=== PATIENT | female | born 1965 | race Caucasian/White ===

== ENCOUNTER 2019-12-09 11:44 | Outpatient (CLI) | payer OTHER, SELFPAY ==
[2019-12-09 12:22] LABS: Alanine Aminotransferase 15 U/L (14-59); Albumin Level 3.7 g/dL (3.4-5.0); Alkaline Phosphatase 87 U/L (46-116); Aspartate Amino Transferase 12 U/L (15-37); Bilirubin,Total 0.5 mg/dL (0.00-1.00); Blood Urea Nitrogen 13 mg/dL (7-18); CRP 2.4 mg/dL (0.0-0.9); Calcium 8.6 mg/dL (8.5-10.1); Carbon Dioxide 29 mmol/L (21-32); Chloride 101 mmol/L (98-108); Estimated Glomerular Filt Rate > 60; Glucose 147 mg/dL (70-99); Osmolality Calculated 293 mOsm/kg (285-295); Sodium 140 mmol/L (136-145); Total Protein 7.3 g/dL (6.4-8.2)
== END 2019-12-09 11:45 | disposition home or self-care (01) ==
LOC: CHSLAB 11:46
PROVIDERS: PCP Nurse Practitioner Family; Visit Provider Nurse Practitioner Family
DX: R07.89 Other chest pain (principal); R11.2 Nausea with vomiting, unspecified
CPT/HCPCS: 36415; 80053; 82553; 86140

== ENCOUNTER 2020-05-19 07:36 | Outpatient (CLI) | payer OTHER, SELFPAY ==
--- NOTE | ~2020-05-19 | MM_ITS ---
EXAMINATION: MM screening juan j BI w jaja HISTORY: Screening TECHNIQUE: Craniocaudal and mediolateral oblique 3-D tomosynthesis images were obtained and synthetic 2-D images were generated. CAD analysis was submitted and interpreted. COMPARISON: Comparison to multiple prior studies sequentially, with oldest reviewed study dated 03/21. BREAST PARENCHYMAL COMPOSITION: There are scattered areas of fibroglandular density. FINDINGS: There is no evidence of suspicious mass, calcification, or architectural distortion to sugg est malignancy in either breast. There has been no suspicious interval change. IMPRESSION: 1. No mammographic evidence of malignancy. 2. Recommend routine screening mammography in one year. BI-RADS Category 1: Negative Reviewed, dictated and finalized at location A.
[2020-05-19 08:33] LABS: Hemoglobin A1C 7.8 % (<5.7)
== END 2020-05-19 07:37 | disposition home or self-care (01) ==
LOC: CHSIMG 07:39
PROVIDERS: PCP Nurse Practitioner Family; Visit Provider Nurse Practitioner Family
DX: Z12.31 Encounter for screening mammogram for malignant neoplasm of breast (principal); E11.9 Type 2 diabetes mellitus without complications
CPT/HCPCS: 36415; 77063; 77067; 83036

== ENCOUNTER 2020-06-09 15:46 | Outpatient (CLI) | payer OTHER, SELFPAY ==
--- NOTE | ~2020-06-09 | XR_ITS ---
XR foot RT standing 2V DATE: 06/09/2020 16:07 INDICATION: Right foot pain TECHNIQUE: Weightbearing AP and lateral views COMPARISON: None FINDINGS: There is very prominent plantar and particularly posterior calcaneal enthesopathy. No fracture or dislocation, periosteal reaction or bone destruction. Mild osteoarthritis at the first metatarsophalangeal joint. IMPRESSION: Prominent plantar and posterior calcaneal enthesopathy Mild osteoarthritis at first metatarsophalangeal joint Reviewed, dictated and finalized at location A.
== END 2020-06-09 15:47 | disposition home or self-care (01) ==
LOC: CHSIMG 15:48
PROVIDERS: PCP Nurse Practitioner Family; Visit Provider Nurse Practitioner Family
DX: M79.671 Pain in right foot (principal)
CPT/HCPCS: 73620

== ENCOUNTER 2020-08-25 07:19 | Outpatient (CLI) | payer OTHER, SELFPAY ==
[2020-08-25 07:51] LABS: Creatinine Urine 65.61 mg/dL (40-278); MALB Creatinine Ratio 19.8 mg/g (0-30); Microalbumin Urine Random < 13.0 mg/L
[2020-08-25 07:53] LABS: Hemoglobin A1C 7.7 % (<5.7)
[2020-08-25 09:06] LABS: Alanine Aminotransferase 17 U/L (14-59); Albumin Level 3.7 g/dL (3.4-5.0); Alkaline Phosphatase 82 U/L (46-116); Anion Gap 7 mmol/L (8-16); Aspartate Amino Transferase < 10 U/L (15-37); Bilirubin,Total 0.5 mg/dL (0.00-1.00); Blood Urea Nitrogen 12 mg/dL (7-18); Carbon Dioxide 29 mmol/L (21-32); Chloride 106 mmol/L (98-108); Cholesterol 175 mg/dL (0-200); Estimated Glomerular Filt Rate > 60; Glucose 155 mg/dL (70-99); HDL Direct 45 mg/dL (40-60); LDL Cholesterol Calculated 101 mg/dL (<130); Osmolality Calculated 296 mOsm/kg (285-295); Potassium 4.6 mmol/L (3.5-5.1); Sodium 142 mmol/L (136-145); Total Protein 6.5 g/dL (6.4-8.2); Triglycerides 146 mg/dL (0-150)
[2020-08-25 09:10] LABS: Calcium 8.7 mg/dL (8.5-10.1)
== END 2020-08-25 07:20 | disposition home or self-care (01) ==
LOC: CHSLAB 07:21
PROVIDERS: PCP Nurse Practitioner Family; Visit Provider Nurse Practitioner Family
DX: E11.9 Type 2 diabetes mellitus without complications (principal)
CPT/HCPCS: 36415; 80053; 80061; 82043; 83036

== ENCOUNTER 2020-12-08 06:56 | Outpatient (CLI) | payer OTHER, SELFPAY ==
[2020-12-08 07:38] LABS: Hemoglobin A1C 6.8 % (<5.7)
[2020-12-08 08:14] LABS: Albumin Level 3.7 g/dL (3.4-5.0); Alkaline Phosphatase 82 U/L (46-116); Anion Gap 8 mmol/L (8-16); Aspartate Amino Transferase 11 U/L (15-37); Bilirubin,Total 0.7 mg/dL (0.00-1.00); Blood Urea Nitrogen 10 mg/dL (7-18); Calcium 8.7 mg/dL (8.5-10.1); Carbon Dioxide 29 mmol/L (21-32); Chloride 105 mmol/L (98-108); Estimated Glomerular Filt Rate > 60; Glucose 151 mg/dL (70-99); Osmolality Calculated 296 mOsm/kg (285-295); Potassium 4.5 mmol/L (3.5-5.1); Sodium 142 mmol/L (136-145); Total Protein 6.4 g/dL (6.4-8.2)
[2020-12-08 08:26] LABS: Alanine Aminotransferase 19 U/L (14-59)
== END 2020-12-08 06:57 | disposition home or self-care (01) ==
LOC: CHSLAB 06:58
PROVIDERS: PCP Nurse Practitioner Family; Visit Provider Nurse Practitioner Family
DX: E11.9 Type 2 diabetes mellitus without complications (principal)
CPT/HCPCS: 36415; 80053; 83036

== ENCOUNTER 2021-03-25 07:17 | Outpatient (CLI) | payer OTHER, SELFPAY ==
[2021-03-25 07:38] LABS: Hemoglobin A1C 7.1 % (<5.7)
== END 2021-03-25 07:18 | disposition home or self-care (01) ==
LOC: CHSLAB 07:19
PROVIDERS: PCP Nurse Practitioner Family; Visit Provider Nurse Practitioner Family
DX: E11.9 Type 2 diabetes mellitus without complications (principal)
CPT/HCPCS: 36415; 83036

== ENCOUNTER 2021-05-25 12:14 | Outpatient (CLI) | payer OTHER, SELFPAY ==
--- NOTE | ~2021-05-25 | MM_ITS ---
EXAMINATION: MM screening juan j BI w jaja HISTORY: Screening mammogram, family history of breast cancer in her mother. TECHNIQUE: Craniocaudal and mediolateral oblique 3-D tomosynthesis images were obtained and synthetic 2-D images were generated. CAD analysis was submitted and interpreted. COMPARISON: 05/19/2020, 05/26/2019, 05/15/2018 BREAST PARENCHYMAL COMPOSITION: The breasts are almost entirely fatty. FINDINGS: There is no evidence of suspicious mass, calcification, or architectural distortion to sugg est malignancy in either breast. There has been no suspicious interval change. IMPRESSION: 1. No mammographic evidence of malignancy. 2. Recommend routine screening mammography in one year. BI-RADS Category 1: Negative Reviewed, dictated and finalized at location A.
== END 2021-05-25 12:15 | disposition home or self-care (01) ==
LOC: CHSIMG 12:15
PROVIDERS: PCP Nurse Practitioner Family; Visit Provider Nurse Practitioner Family
DX: Z12.31 Encounter for screening mammogram for malignant neoplasm of breast (principal)
CPT/HCPCS: 77063; 77067

== ENCOUNTER 2021-07-06 07:30 | Outpatient (CLI) | payer OTHER, SELFPAY ==
[2021-07-06 07:52] LABS: Hemoglobin A1C 6.8 % (<5.7)
== END 2021-07-06 07:31 | disposition home or self-care (01) ==
LOC: CHSLAB 07:32
PROVIDERS: PCP Nurse Practitioner Family; Visit Provider Nurse Practitioner Family
DX: E11.9 Type 2 diabetes mellitus without complications (principal)
CPT/HCPCS: 36415; 83036

== ENCOUNTER 2021-08-11 12:27 | Outpatient (CLI) | payer OTHER, SELFPAY ==
--- NOTE | ~2021-08-11 | XR_ITS ---
EXAMINATION: XR chest 2V DATE: 08/11/2021 12:46 INDICATION: Shortness of breath TECHNIQUE: PA and lateral views of the chest are obtained. COMPARISON: 10/31/2019 FINDINGS: The lungs are free of acute opacities. There is no pleural effusion or pneumothorax. The ca rdiomediastinal silhouette is normal. There is moderate thoracic spondylosis. IMPRESSION: 1. No acute cardiopulmonary abnormality. Reviewed, dictated and finalized at location B.
== END 2021-08-11 12:28 | disposition home or self-care (01) ==
LOC: CHSIMG 12:29
PROVIDERS: PCP Nurse Practitioner Family; Visit Provider Nurse Practitioner Family
DX: J45.901 Unspecified asthma with (acute) exacerbation (principal)
CPT/HCPCS: 71046

== ENCOUNTER 2022-02-26 10:31 | Emergency (ER) | payer OTHER, SELFPAY ==
[2022-02-26 10:35] VITALS: BP 164/99; PULSE 97; RESP 16; TEMP 36.6; O2SAT 98
--- NOTE | 2022-02-26 10:40 | ED.LOWEXIN ---
HPI - Extremity Injury (Lower) General Chief Complaint: Extremity Injury, Lower Stated Complaint: R leg pain for 1 wk, redness/tenderness on R calf Time Seen by Provider: 02/26/22 10:41 Source: patient History of Present Illness HPI Narrative: 56-year-old female, smoker with a history of hypertension, diabetes mellitus presents to the ER with a one-week history -- pain in the right leg with red/brown discoloration of the lower leg. no history of trauma -- muscle cramps the cough without any swelling. 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 Relieving factors: nothing Exacerbating factors: nothing Other symptoms: none Related Data Allergies Allergy/AdvReac Type Severity Reaction Status Date / Time ceftriaxone [From Rocephin] Allergy Intermediate Hives Verified 02/26/22 10:48 cephalexin Allergy Intermediate swelling, Verified 02/26/22 10:48 hives Penicillins Allergy Intermediate Unknown Verified 02/26/22 10:48 sulfamethoxazole Allergy Mild Hives Verified 02/26/22 10:48 [From Bactrim] trimethoprim [From Bactrim] Allergy Mild Hives Verified 02/26/22 10:48 Review of Systems Review of Systems: All systems reviewed & are unremarkable except as noted in HPI and below Constitutional: Constitutional: Reports as per HPI and Reports no additional constitutional complaints Eyes: Eyes: Reports as per HPI and Reports no additional eye complaints ENT: Reports system reviewed and no additional complaints, except as documented and Reports as per HPI Cardiovascular: Cardiovascular: Reports as per HPI and Reports no additional cardiovascular complaints Respiratory: Respiratory: Reports as per HPI, Reports no additional respiratory complaints and Reports cough Gastrointestinal: Gastrointestinal: Reports as per HPI and Reports no additional gastrointestinal complaints Genitourinary: Genitourinary: Reports no additional female genitourinary complaints Musculoskeletal: Musculoskeletal: Reports no additional musculoskeletal complaints Comments: right calf pain /cramps Integumentary/Breasts: Skin/Breast: Reports system reviewed and no additional complaints, except as docu Comments: red discoloration of lower leg smoke prominent on the right side Neurologic: Reports system reviewed and no additional complaints, except as documented and Reports as per HPI Psychiatric: Psychiatric: Reports no additional psychiatric complaints and Reports as per HPI Endocrine: Endocrine: Reports no additional endocrine complaints and Reports as per HPI Hematologic/Lymphatic: Hematologic/Lymphatic: Reports no additional hematologic/lymphatic complaints and Reports as per HPI Allergic/Immunologic: Allergic/Immunologic: Reports no additional allergic/immunologic complaints and Reports as per HPI [facility] Past Medical History Medical History Abdominal pain Acute otitis media Chest discomfort Conjunctivitis HTN (hypertension) Hyperlipidemia Nausea & vomiting Nicotine dependence, cigarettes, uncomplicated Osteoporosis Type 2 diabetes mellitus Family History Family History Father Diabetes mellitus Family history of arthritis Family history of malignant neoplasm Father Family history of type 2 diabetes mellitus Family history of chronic obstructive pulmonary disease Social History Social History Smoking status: Former smoker Smoking end date: 10/09/12 Alcohol intake: never Substance use: never Substance use type: does not use Exam Const: General: no acute distress and alert Orientation/consciousness: patient oriented x3 HENMT: Head: normal to inspection Eyes: Conjunctivae: conjunctivae normal Pupils: Equal, round and reactive pupils present Neck: Neck: normal visual inspection and no lymphadenopathy Chest: Chest palpation &
[2022-02-26 11:11] LABS: Basophils Absolute Auto 0.06 K/mm3 (0.00-0.10); Basophils Percent Auto 0.5 % (0.0-1.0); Eosinophils Absolute Auto 0.28 K/mm3 (0.02-0.50); Eosinophils Percent Auto 2.4 % (1.0-6.0); Hematocrit 46.8 % (35.0-49.0); Hemoglobin 14.8 g/dL (12.0-15.0); Immature Granulocyte Absolute 0.03 K/mm3 (0.00-0.00); Immature Granulocyte Percent A 0.3 % (0.0-0.0); Lymphocytes Absolute Auto 5.98 K/mm3 (1.10-4.50); Lymphocytes Percent Auto 50.3 % (18.0-42.0); Mean Corpuscular HGB Conc 31.6 g/dL (32.0-36.0); Mean Corpuscular Hemoglobin 29.5 pg (27.0-31.0); Mean Corpuscular Volume 93.2 fL (78.0-102.0); Mean Platelet Volume 10.1 fl (9.2-11.8); Monocytes Absolute Auto 0.78 K/mm3 (0.10-0.90); Monocytes Percent Auto 6.6 % (2.0-11.0); Neutrophils Absolute Auto 4.8 K/mm3 (1.7-7.2); Neutrophils Percent Auto 39.9 % (50.0-70.0); Platelet Count Result 234 K/mm3 (150-420); Red Blood Count 5.02 M/mm3 (4.20-5.40); Red Cell Distribution Width 15.6 % (11.6-14.4); White Blood Count 11.9 K/mm3 (4.8-10.8)
[2022-02-26 11:20] LABS: D Dimer 0.22 mg/L (0.19-0.50)
[2022-02-26 11:30] LABS: Alanine Aminotransferase 16 U/L (14-59); Albumin Level 3.4 g/dL (3.4-5.0); Alkaline Phosphatase 75 U/L (46-116); Anion Gap 9 mmol/L (8-16); Aspartate Amino Transferase 11 U/L (15-37); Bilirubin,Total 0.4 mg/dL (0.00-1.00); Blood Urea Nitrogen 14 mg/dL (7-18); Calcium 8.6 mg/dL (8.5-10.1); Carbon Dioxide 25 mmol/L (21-32); Chloride 105 mmol/L (98-108); Estimated CRCL calculation 83 ml/min; Estimated Glomerular Filt Rate > 60; Glucose 206 mg/dL (70-99); NT Pro B Type Natriuretic Pept 94 pg/mL (0-125); Osmolality Calculated 294 mOsm/kg (285-295); Potassium 4.1 mmol/L (3.5-5.1); Sodium 139 mmol/L (136-145); Total Protein 6.5 g/dL (6.4-8.2)
[2022-02-26 11:31] LABS: Troponin I 5.3 ng/L (0.00-60.4)
[2022-02-26 11:53] VITALS: BP 152/87; PULSE 79; RESP 18; TEMP 36.7; O2SAT 97
[2022-02-28 16:40] LABS: Hemoglobin A1C 6.9 % (<5.7)
== END 2022-02-26 11:54 | disposition home or self-care (01) ==
PROVIDERS: Emergency Provider Internal Medicine Critical Care Medicine; PCP Nurse Practitioner Family
DX: I87.8 Other specified disorders of veins (principal); I10 Essential (primary) hypertension; E11.9 Type 2 diabetes mellitus without complications; E78.5 Hyperlipidemia, unspecified; M81.0 Age-related osteoporosis without current pathological fracture; Z87.891 Personal history of nicotine dependence
CPT/HCPCS: 36415; 80053; 83036; 83880; 84484; 85025; 85380; 99284

== ENCOUNTER 2022-03-09 12:20 | Outpatient (CLI) | payer OTHER, SELFPAY ==
--- NOTE | ~2022-03-09 | US_ITS ---
EXAMINATION: US arterial ankle brachial ind DATE: 03/09/2022 13:58 INDICATION: Right lower limb pain and swelling. Other specified symptoms and signs involving the circ ulatory system. Peripheral vascular disease risk factors of diabetes, hypertension and smoking. TECHNIQUE: Segmental pressures and plethysmographic and Doppler waveforms of the brachial and lower e xtremity arteries were obtained. COMPARISON: None. FINDINGS: Right and left brachial artery pressures of 123 mm Hg and 136 mm Hg, respectively, are concordant (no rmal difference <= 30 mmHg). The right ankle-brachial index (JULIANNA) is 1.03 (normal >= 0.9-1.0). The right great toe-brachial index (TBI) is 1.01 (normal >= 0.65). Arterial Doppler waveforms are triphasic with brisk systolic upstroke s at both right posterior tibial and dorsalis pedis arteries. The left JULIANNA is 1.02. The left TBI is 0.92. Arterial Doppler waveforms are triphasic with brisk systo lic upstrokes at both left posterior tibial and dorsalis pedis arteries. IMPRESSION: 1. No significant arterial occlusive disease to the bilateral lower limbs with normal bilateral ABIs and TBIs. Reviewed, dictated and finalized at location B.
--- NOTE | ~2022-03-09 | US_ITS ---
EXAMINATION: US arterial duplex LE RT DATE: 03/09/2022 13:57 INDICATION: Right lower limb pain and swelling. Other specified symptoms and signs involving the circ ulatory system. TECHNIQUE: Multiple grayscale and Doppler ultrasound images of the arteries of the right lower limb w ere obtained. COMPARISON: None FINDINGS: Triphasic waveforms in the right common femoral, profunda femoral, superficial femoral, popliteal, po sterior tibial arteries and biphasic waveforms in the right dorsalis pedis artery. Each of these deepak raoul demonstrates a brisk systolic upstroke and relatively smooth laminar flow with minimal spectral broadening. No vascular flow identified in the proximal right peroneal artery suggesting possible occ lusion with subtle biphasic waveform evident at the distal right peroneal artery potentially related to small amount of collateral flow. IMPRESSION: 1. No evident flow within the proximal right peroneal artery with small amount of flow with biphasic waveform in the distal peroneal artery suggesting possible proximal occlusion with distal reconstitut ion via collaterals. 2. Remaining arteries of the right lower limb appear unremarkable with brisk systolic upstrokes and r elatively smooth laminar flow. Reviewed, dictated and finalized at location B. IMPRESSION: 1. No evident flow within the proximal right peroneal artery with small amount of flow with biphasic waveform in the distal peroneal artery suggesting possibl e proximal occlusion with distal reconstitution via collaterals. 2. Remaining arteries of the right lower limb appear unremarkable with brisk sy stolic upstrokes and relatively smooth laminar flow.
--- NOTE | ~2022-03-09 | US_ITS ---
EXAMINATION:US venous doppler LE RT INDICATION:Right lower extremity pain and swelling TECHNIQUE: Multiple grayscale, color flow and Doppler images of the right lower extremity deep venous systems were obtained and reviewed. COMPARISON:No prior studies for comparison. FINDINGS: The common femoral, superficial femoral and popliteal veins demonstrate normal respiratory variation, augmentation and compressibility. Color flow is also seen within the posterior tibial, pe roneal, greater saphenous and profunda veins. IMPRESSION: 1: No lower extremity deep venous thrombosis. Reviewed, dictated and finalized at location A.
== END 2022-03-09 12:21 | disposition home or self-care (01) ==
LOC: CHSIMG 12:21
PROVIDERS: PCP Nurse Practitioner Family; Visit Provider Nurse Practitioner Family
DX: R09.89 Other specified symptoms and signs involving the circulatory and respiratory systems (principal)
CPT/HCPCS: 93922; 93926; 93971

== ENCOUNTER 2022-06-02 11:47 | Outpatient (CLI) | payer OTHER, SELFPAY ==
--- NOTE | ~2022-06-02 | MM_ITS ---
EXAMINATION: MM screening juan j BI w jaja HISTORY: Screening TECHNIQUE: Craniocaudal and mediolateral oblique 3-D tomosynthesis images were obtained and synthetic 2-D images were generated. CAD analysis was submitted and interpreted. COMPARISON: Comparison to multiple prior studies sequentially, with oldest reviewed study dated 05/05. BREAST PARENCHYMAL COMPOSITION: Breast composed of scattered areas of fibroglandular density FINDINGS: Stable benign-appearing masses outer aspect of the left breast. There is no evidence of ian picious mass, calcification, or architectural distortion to suggest malignancy in either breast. Ther e has been no suspicious interval change. IMPRESSION: 1. No mammographic evidence of malignancy. 2. Recommend routine screening mammography in one year. BI-RADS Category 1: Negative Reviewed, dictated and finalized at location A.
== END 2022-06-02 11:48 | disposition home or self-care (01) ==
LOC: CHSIMG 11:49
PROVIDERS: PCP Nurse Practitioner Family; Visit Provider Nurse Practitioner Family
DX: Z12.31 Encounter for screening mammogram for malignant neoplasm of breast (principal)
CPT/HCPCS: 77063; 77067

== ENCOUNTER 2022-08-23 07:11 | Outpatient (CLI) | payer OTHER, SELFPAY ==
[2022-08-23 07:35] LABS: Basophils Absolute Auto 0.04 K/mm3 (0.00-0.10); Basophils Percent Auto 0.3 % (0.0-1.0); Eosinophils Absolute Auto 0.25 K/mm3 (0.02-0.50); Eosinophils Percent Auto 2.1 % (1.0-6.0); Hematocrit 48.5 % (35.0-49.0); Hemoglobin 15.6 g/dL (12.0-15.0); Immature Granulocyte Absolute 0.04 K/mm3 (0.00-0.00); Immature Granulocyte Percent A 0.3 % (0.0-0.0); Lymphocytes Absolute Auto 6.53 K/mm3 (1.10-4.50); Lymphocytes Percent Auto 55.1 % (18.0-42.0); Mean Corpuscular HGB Conc 32.2 g/dL (32.0-36.0); Mean Corpuscular Hemoglobin 30.3 pg (27.0-31.0); Mean Corpuscular Volume 94.2 fL (78.0-102.0); Monocytes Absolute Auto 0.59 K/mm3 (0.10-0.90); Neutrophils Absolute Auto 4.4 K/mm3 (1.7-7.2); Neutrophils Percent Auto 37.2 % (50.0-70.0); Platelet Count Result 224 K/mm3 (150-420); Red Blood Count 5.15 M/mm3 (4.20-5.40); Red Cell Distribution Width 14.6 % (11.6-14.4); White Blood Count 11.9 K/mm3 (4.8-10.8)
[2022-08-23 07:50] LABS: Creatinine Urine 27.44 mg/dL (40-278); MALB Creatinine Ratio 47.3 mg/g (0-30); Microalbumin Urine Random < 13.0 mg/L
[2022-08-23 07:53] LABS: Hemoglobin A1C 7.6 % (<5.7)
[2022-08-23 07:59] LABS: Alanine Aminotransferase 18 U/L (14-59); Albumin Level 3.6 g/dL (3.4-5.0); Alkaline Phosphatase 83 U/L (46-116); Anion Gap 8 mmol/L (8-16); Aspartate Amino Transferase 12 U/L (15-37); Bilirubin,Total 0.5 mg/dL (0.00-1.00); Blood Urea Nitrogen 13 mg/dL (7-18); Calcium 8.5 mg/dL (8.5-10.1); Carbon Dioxide 29 mmol/L (21-32); Chloride 105 mmol/L (98-108); Cholesterol 183 mg/dL (0-200); Estimated Glomerular Filt Rate > 60; Glucose 152 mg/dL (70-99); HDL Direct 46 mg/dL (40-60); LDL Cholesterol Calculated 99 mg/dL (<130); Osmolality Calculated 297 mOsm/kg (285-295); Potassium 4.5 mmol/L (3.5-5.1); Sodium 142 mmol/L (136-145); Total Protein 6.6 g/dL (6.4-8.2); Triglycerides 192 mg/dL (0-150)
== END 2022-08-23 07:12 | disposition home or self-care (01) ==
LOC: CHSLAB 07:13
PROVIDERS: PCP Nurse Practitioner Family; Visit Provider Nurse Practitioner Family
DX: E78.5 Hyperlipidemia, unspecified (principal); E11.9 Type 2 diabetes mellitus without complications; I10 Essential (primary) hypertension
CPT/HCPCS: 36415; 80053; 80061; 82043; 83036; 85025

== ENCOUNTER 2022-12-06 07:00 | Outpatient (CLI) | payer OTHER, SELFPAY | END 2022-12-06 07:01 | disposition home or self-care (01) | LOC: CHSLAB 07:02 | PROVIDERS: PCP Nurse Practitioner Family; Visit Provider Nurse Practitioner Family | DX: E11.9 Type 2 diabetes mellitus without complications (principal) | CPT/HCPCS: 36415; 83036 ==

== ENCOUNTER 2023-06-06 12:09 | Outpatient (CLI) | payer OTHER, SELFPAY ==
--- NOTE | ~2023-06-06 | MM_ITS ---
EXAMINATION: MM screening juan j BI w jaja HISTORY: Screening mammogram, family history of breast cancer in her mother. TECHNIQUE: Craniocaudal and mediolateral oblique 3-D tomosynthesis images were obtained and synthetic 2-D images were generated. CAD analysis was submitted and interpreted. COMPARISON: 06/02/2022, 05/25/2021 BREAST PARENCHYMAL COMPOSITION: There are scattered areas of fibroglandular density. FINDINGS: No suspicious mass, calcification, or architectural distortion are identified in either pamela ast to suggest malignancy. There has been no suspicious interval change. IMPRESSION: 1. No mammographic evidence of malignancy. 2. Recommend routine screening mammography in one year. BI-RADS Category 1: Negative Reviewed, dictated and finalized at location A.
== END 2023-06-06 12:10 | disposition home or self-care (01) ==
LOC: CHSIMG 12:10
PROVIDERS: PCP Nurse Practitioner Family; Visit Provider Nurse Practitioner Family
DX: Z12.31 Encounter for screening mammogram for malignant neoplasm of breast (principal)
CPT/HCPCS: 77063; 77067

== ENCOUNTER 2023-06-13 07:06 | Outpatient (CLI) | payer OTHER, SELFPAY ==
[2023-06-13 07:31] LABS: Basophils Absolute Auto 0.06 K/mm3 (0.00-0.10); Basophils Percent Auto 0.4 % (0.0-1.0); Eosinophils Absolute Auto 0.29 K/mm3 (0.02-0.50); Hematocrit 49.6 % (35.0-49.0); Hemoglobin 15.6 g/dL (12.0-15.0); Immature Granulocyte Absolute 0.04 K/mm3 (0.00-0.00); Immature Granulocyte Percent A 0.3 % (0.0-0.0); Lymphocytes Absolute Auto 8.24 K/mm3 (1.10-4.50); Lymphocytes Percent Auto 57.9 % (18.0-42.0); Mean Corpuscular HGB Conc 31.5 g/dL (32.0-36.0); Mean Corpuscular Hemoglobin 29.2 pg (27.0-31.0); Mean Corpuscular Volume 92.7 fL (78.0-102.0); Mean Platelet Volume 9.9 fl (9.2-11.8); Monocytes Percent Auto 5.6 % (2.0-11.0); Neutrophils Absolute Auto 4.8 K/mm3 (1.7-7.2); Neutrophils Percent Auto 33.8 % (50.0-70.0); Platelet Count Result 254 K/mm3 (150-420); Red Blood Count 5.35 M/mm3 (4.20-5.40); Red Cell Distribution Width 15.8 % (11.6-14.4); White Blood Count 14.2 K/mm3 (4.8-10.8)
[2023-06-13 07:39] LABS: Hemoglobin A1C 6.3 % (<5.7)
[2023-06-13 08:06] LABS: Alanine Aminotransferase 12 U/L (14-59); Albumin Level 3.5 g/dL (3.4-5.0); Alkaline Phosphatase 76 U/L (46-116); Anion Gap 6 mmol/L (8-16); Aspartate Amino Transferase 10 U/L (15-37); Bilirubin,Total 0.5 mg/dL (0.00-1.00); Blood Urea Nitrogen 20 mg/dL (7-18); Calcium 8.7 mg/dL (8.5-10.1); Carbon Dioxide 30 mmol/L (21-32); Chloride 105 mmol/L (98-108); Cholesterol 183 mg/dL (0-200); Estimated Glomerular Filt Rate > 60; Glucose 127 mg/dL (70-99); HDL Direct 44 mg/dL (40-60); LDL Cholesterol Calculated 102 mg/dL (<130); Osmolality Calculated 296 mOsm/kg (285-295); Potassium 4.4 mmol/L (3.5-5.1); Sodium 141 mmol/L (136-145); Total Protein 6.4 g/dL (6.4-8.2); Triglycerides 184 mg/dL (0-150)
== END 2023-06-13 07:07 | disposition home or self-care (01) ==
LOC: CHSLAB 07:07
PROVIDERS: PCP Nurse Practitioner Family; Visit Provider Nurse Practitioner Family
DX: E78.5 Hyperlipidemia, unspecified (principal); E11.9 Type 2 diabetes mellitus without complications; I10 Essential (primary) hypertension
CPT/HCPCS: 36415; 80053; 80061; 83036; 85025

== ENCOUNTER 2023-06-27 12:55 | Outpatient (CLI) | payer OTHER, SELFPAY ==
[2023-06-27 13:12] LABS: Hematocrit 49.7 % (35.0-49.0); Hemoglobin 15.6 g/dL (12.0-15.0); Mean Corpuscular HGB Conc 31.4 g/dL (32.0-36.0); Mean Corpuscular Hemoglobin 29.2 pg (27.0-31.0); Mean Corpuscular Volume 93.1 fL (78.0-102.0); Mean Platelet Volume 10.2 fl (9.2-11.8); Platelet Count Result 237 K/mm3 (150-420); Red Blood Count 5.34 M/mm3 (4.20-5.40); Red Cell Distribution Width 15.7 % (11.6-14.4); White Blood Count 12.8 K/mm3 (4.8-10.8)
[2023-06-27 13:45] LABS: Band Neutrophils Percent 0 % (0-6); Basophils Percent Manual 0 % (0-1); Eosinophils Absolute Manual 0.38 K/mm3 (0.02-0.5); Eosinophils Percent Manual 3 % (1-6); Lymphocytes Absolute Manual 8.44 K/mm3 (1.1-4.5); Lymphocytes Percent Manual 66 % (18-44); Monocytes Absolute Manual 0.51 K/mm3 (0.1-0.90); Monocytes Percent Manual 4 % (3-9); Neutrophils Absolute Manual 3.45 K/mm3 (1.7-7.2); Neutrophils Percent Manual 27 % (46-73); Total Cells Counted 100
[2023-06-27 13:46] LABS: Platelet Estimate Adequate (Adequate)
== END 2023-06-27 12:56 | disposition home or self-care (01) ==
LOC: CHSLAB 12:56
PROVIDERS: PCP Nurse Practitioner Family; Visit Provider Nurse Practitioner Family
DX: D72.829 Elevated white blood cell count, unspecified (principal)
CPT/HCPCS: 36415; 85025

== ENCOUNTER 2023-12-26 07:15 | Outpatient (CLI) | payer OTHER, SELFPAY ==
[2023-12-26 07:30] LABS: Hematocrit 50.1 % (35.0-49.0); Hemoglobin 15.6 g/dL (12.0-15.0); Mean Corpuscular HGB Conc 31.1 g/dL (32-36); Mean Corpuscular Hemoglobin 28.6 pg (27.0-31.0); Mean Corpuscular Volume 91.8 fL (78.0-102.0); Mean Platelet Volume 9.8 fl (9.2-11.8); Platelet Count Result 256 K/mm3 (150-420); Red Blood Count 5.46 M/mm3 (4.20-5.40); White Blood Count 14.9 K/mm3 (4.8-10.8)
[2023-12-26 07:43] LABS: Band Neutrophils Percent 0 % (0-6); Eosinophils Absolute Manual 0.44 K/mm3 (0.02-0.50); Eosinophils Percent Manual 3 % (1-6); Lymphocytes Absolute Manual 9.23 K/mm3 (1.1-4.5); Lymphocytes Percent Manual 62 % (18-44); Monocytes Absolute Manual 0.89 K/mm3 (0.1-0.90); Monocytes Percent Manual 6 % (3-9); Neutrophils Absolute Manual 4.32 K/mm3 (1.7-7.2); Neutrophils Percent Manual 29 % (46-73); Platelet Estimate Adequate (Adequate); Total Cells Counted 100
[2023-12-26 08:11] LABS: Alanine Aminotransferase 16 U/L (14-59); Albumin Level 3.6 g/dL (3.4-5.0); Alkaline Phosphatase 78 U/L (46-116); Anion Gap 12 mmol/L (8-16); Aspartate Amino Transferase 11 U/L (15-37); Bilirubin,Total 0.4 mg/dL (0.00-1.00); Blood Urea Nitrogen 15 mg/dL (7-18); Calcium 8.8 mg/dL (8.5-10.1); Carbon Dioxide 26 mmol/L (21-32); Chloride 104 mmol/L (98-108); Cholesterol 200 mg/dL (0-200); Estimated Glomerular Filt Rate > 60; Glucose 137 mg/dL (70-99); HDL Direct 47 mg/dL (40-60); LDL Cholesterol Calculated 87 mg/dL (<130); Osmolality Calculated 296 mOsm/kg (285-295); Potassium 4.3 mmol/L (3.5-5.1); Sodium 142 mmol/L (136-145); Triglycerides 332 mg/dL (0-150)
== END 2023-12-26 07:16 | disposition home or self-care (01) ==
LOC: CHSLAB 07:17
PROVIDERS: PCP Nurse Practitioner Family; Visit Provider Nurse Practitioner Family
DX: Z00.00 Encounter for general adult medical examination without abnormal findings (principal)
CPT/HCPCS: 36415; 80053; 80061; 83036; 85025

== ENCOUNTER 2024-01-30 10:17 | Outpatient (CLI) | payer OTHER, SELFPAY ==
[2024-01-30 10:42] LABS: Hematocrit 48.4 % (37.0-47.0); Hemoglobin 15.2 g/dL (12.0-15.0); Mean Corpuscular HGB Conc 31.4 g/dl (32-36); Mean Corpuscular Hemoglobin 29.4 pg (26-34); Mean Corpuscular Volume 93.6 fl (80-100); Mean Platelet Volume 9.3 fl (7.4-10.4); Platelet Count Result 354 k/mm3 (150-375); Red Blood Count 5.17 M/mm3 (4.2-5.4); Red Cell Distribution Width 14.9 % (11.5-14.5); White Blood Count 16.9 K/mm3 (4.5-10.0)
[2024-01-30 11:05] LABS: Atypical Lymphocytes Present; Band Neutrophils Percent 2 % (0-6); Eosinophils Absolute Manual 0.16 K/mm3 (0.02-0.50); Eosinophils Percent Manual 1 % (0-4); Lymphocytes Absolute Manual 8.78 K/mm3 (1.1-4.5); Monocytes Absolute Manual 0.84 K/mm3 (0.1-0.90); Monocytes Percent Manual 5 % (3-9); Neutrophils Absolute Manual 7.09 K/mm3 (1.7-7.2); Neutrophils Percent Manual 40 % (46-73); Platelet Estimate Adequate (Adequate); Schistocytes None Seen; Total Cells Counted 100
[2024-01-30 12:42] LABS: Erythrocyte Sedimentation Rate 18 mm/hr (0-20)
[2024-01-30 16:54] LABS: Iron 77 ug/dL (37-170)
[2024-01-30 17:02] LABS: Alanine Aminotransferase 13 U/L (6-35); Albumin Level 4.5 g/dL (3.5-5.1); Alkaline Phosphatase 79 U/L (38-126); Anion Gap 9 mmol/L (4-12); Aspartate Amino Transferase 24 U/L (14-36); Bilirubin,Total 0.5 mg/dL (0.2-1.3); Blood Urea Nitrogen 15 mg/dL (7-17); CRP 1.3 mg/dL (<1.0); Calcium 9.5 mg/dL (8.4-10.2); Carbon Dioxide 26 mmol/L (22-30); Chloride 107 mmol/L (98-107); Estimated Glomerular Filt Rate > 60; Glucose 153 mg/dL (65-110); Potassium 4.2 mmol/L (3.4-5.0); Sodium 142 mmol/L (137-145)
[2024-01-30 17:05] LABS: Percent Iron Saturation 20 % (20-50)
[2024-01-30 18:14] LABS: Folic Acid 6.8 ng/mL (2.76->20); Vitamin B12 > 1000.0 pg/mL (239-931)
== END 2024-01-30 10:18 | disposition home or self-care (01) ==
LOC: ANHLAB 10:19
PROVIDERS: Nurse Practitioner Family; PCP Nurse Practitioner Family; Visit Provider Internal Medicine Hematology & Oncology
DX: D72.829 Elevated white blood cell count, unspecified (principal); D50.9 Iron deficiency anemia, unspecified
CPT/HCPCS: 36415; 80053; 82607; 82746; 83540; 83550; 85025; 85652; 86140

== ENCOUNTER 2024-02-01 11:04 | Outpatient (CLI) | payer OTHER, SELFPAY ==
[2024-02-01 12:42] LABS: CRP 0.5 mg/dL (0.0-0.9); Erythrocyte Sedimentation Rate 15 mm/hr (0-20); Folic Acid 6.4 ng/mL (8.6->20); Vitamin B12 1848 pg/mL (193-986)
[2024-02-07 11:04] LABS: Reference Lab Test Name FLOW CYTOMETRY
== END 2024-02-01 11:05 | disposition home or self-care (01) ==
LOC: CHSLAB 11:07
PROVIDERS: PCP Nurse Practitioner Family; Visit Provider Nurse Practitioner Family
DX: D72.829 Elevated white blood cell count, unspecified (principal); D50.9 Iron deficiency anemia, unspecified
CPT/HCPCS: 36415; 82607; 82746; 85652; 86140; 88184; 88185

== ENCOUNTER 2024-04-02 06:59 | Outpatient (CLI) | payer OTHER, SELFPAY ==
[2024-04-02 07:25] LABS: Hemoglobin A1C 6.5 % (<5.7)
[2024-04-02 07:37] LABS: Creatinine Urine 32.08 mg/dL (40-278)
[2024-04-02 07:57] LABS: Microalbumin Urine Random < 1.3 mg/L
[2024-04-02 08:04] LABS: Alanine Aminotransferase 6 U/L (14-59); Albumin Level 3.4 g/dL (3.4-5.0); Alkaline Phosphatase 66 U/L (46-116); Anion Gap 10 mmol/L (4-12); Aspartate Amino Transferase 13 U/L (15-37); Bilirubin,Total 0.3 mg/dL (0.00-1.00); Blood Urea Nitrogen 17 mg/dL (7-18); Calcium 8.7 mg/dL (8.5-10.1); Carbon Dioxide 28 mmol/L (21-32); Chloride 103 mmol/L (98-108); Estimated Glomerular Filt Rate > 60; Glucose 115 mg/dL (70-99); Osmolality Calculated 294 mOsm/kg (285-295); Potassium 4.1 mmol/L (3.5-5.1); Sodium 141 mmol/L (136-145); Total Protein 6.2 g/dL (6.4-8.2)
== END 2024-04-02 07:00 | disposition home or self-care (01) ==
LOC: CHSLAB 07:01
PROVIDERS: PCP Nurse Practitioner Family; Visit Provider Nurse Practitioner Family
DX: E11.9 Type 2 diabetes mellitus without complications (principal)
CPT/HCPCS: 36415; 80053; 82043; 83036

== ENCOUNTER 2024-04-09 07:48 | Outpatient (CLI) | payer OTHER, SELFPAY ==
[2024-04-09 08:15] LABS: Basophils Absolute Auto 0.04 K/mm3 (0.00-0.10); Basophils Percent Auto 0.3 % (0.0-1.0); Eosinophils Absolute Auto 0.19 K/mm3 (0.02-0.50); Eosinophils Percent Auto 1.5 % (1.0-6.0); Hematocrit 46.6 % (35.0-49.0); Hemoglobin 14.6 g/dL (12.0-15.0); Immature Granulocyte Absolute 0.03 K/mm3 (0.00-0.00); Immature Granulocyte Percent A 0.2 % (0.0-0.0); Lymphocytes Absolute Auto 6.59 K/mm3 (1.10-4.50); Lymphocytes Percent Auto 53.7 % (18.0-42.0); Mean Corpuscular HGB Conc 31.3 g/dL (32-36); Mean Corpuscular Hemoglobin 29.1 pg (27.0-31.0); Mean Platelet Volume 9.9 fl (9.2-11.8); Monocytes Absolute Auto 0.58 K/mm3 (0.10-0.90); Monocytes Percent Auto 4.7 % (2.0-11.0); Neutrophils Absolute Auto 4.84 K/mm3 (1.70-7.20); Neutrophils Percent Auto 39.6 % (50.0-70.0); Platelet Count Result 236 K/mm3 (150-420); Red Blood Count 5.01 M/mm3 (4.20-5.40); Red Cell Distribution Width 15.6 % (11.6-14.4); White Blood Count 12.3 K/mm3 (4.8-10.8)
[2024-04-09 09:12] LABS: Anion Gap 7 mmol/L (4-12); Blood Urea Nitrogen 15 mg/dL (7-18); Calcium 8.4 mg/dL (8.5-10.1); Carbon Dioxide 29 mmol/L (21-32); Chloride 104 mmol/L (98-108); Estimated Glomerular Filt Rate > 60; Ferritin 171 ng/mL (8-252); Folic Acid 9.2 ng/mL (8.6->20); Glucose 178 mg/dL (70-99); Iron 45 ug/dL (50-170); Osmolality Calculated 294 mOsm/kg (285-295); Percent Iron Saturation 12 % (12-57); Sodium 140 mmol/L (136-145); Vitamin B12 699 pg/mL (193-986)
== END 2024-04-09 07:49 | disposition home or self-care (01) ==
LOC: CHSLAB 07:50
PROVIDERS: PCP Nurse Practitioner Family; Visit Provider Nurse Practitioner Family
DX: C91.10 Chronic lymphocytic leukemia of B-cell type not having achieved remission (principal); D50.9 Iron deficiency anemia, unspecified
CPT/HCPCS: 36415; 80048; 82607; 82728; 82746; 83540; 83550; 85025

== ENCOUNTER 2024-05-08 10:04 | Outpatient (CLI) | payer OTHER, SELFPAY ==
--- NOTE | ~2024-05-08 | XR_ITS ---
XR hip RT min 2V Ordering provider: Kaya Waldrop APRN History: . arthritis pain . Comparison: None. FINDINGS: BONES: No acute fracture or dislocation. HIP JOINT SPACES: Mild to moderate Osteoarthritic changes. PUBIC SYMPHYSIS: Normal. SOFT TISSUES: Normal. IMPRESSION: No acute osseous abnormality pelvis and right hip. Reviewed, dictated and finalized at location A.
--- NOTE | ~2024-05-08 | XR_ITS ---
XR hip LT min 2V Ordering provider: Kaya Waldrop APRN History: . arthritis pain . Comparison: June 09, 2016 FINDINGS: BONES: No acute fracture or dislocation. HIP JOINT SPACES: Mild to moderate osteoarthritic changes. PUBIC SYMPHYSIS: Normal. SOFT TISSUES: Normal. IMPRESSION: No acute osseous abnormality pelvis and left hip. Reviewed, dictated and finalized at location A.
--- NOTE | ~2024-05-08 | XR_ITS ---
2 VIEWS SOFT TISSUES NECK Ordering provider: Kaya Waldrop APRN History: . arthritis pain . Comparison: None. FINDINGS: SOFT TISSUES: No prevertebral soft tissue swelling. The epiglottis is normal. The pharynx and trach ea appear patent. VERTEBRAL BODIES: Normal height and alignment. No acute osseous findings. DISK SPACES: Normal. Multilevel uncovertebral joint osteoarthritic changes. IMPRESSION: No definite abnormality. Reviewed, dictated and finalized at location A. IMPRESSION: No definite abnormality.
--- NOTE | ~2024-05-08 | XR_ITS ---
XR shoulder RT min 2V Ordering provider: Kaya Waldrop APRN History: . arthritis pain . Comparison: None. FINDINGS: BONES: No acute fracture or dislocation. JOINT SPACES: The acromioclavicular joint shows osteoarthritic changes. The glenohumeral joint is nor mal. SOFT TISSUES: Normal. IMPRESSION: No acute osseous abnormality right shoulder. Reviewed, dictated and finalized at location A.
--- NOTE | ~2024-05-08 | DEXA_ITS ---
Bone Density Report Name: JOAO NASH Age: 58 Sex: Female Ethnicity: White Date of : 1965 Indication: postmenopausal; screening for osteoporosis; prior fracture; cancer; asthma or emphysema; Referring Provider: ADALBERTO WHITEHEAD Study: Bone densitometry was performed. Exam Date: May 08, 2024 Accession number: [id number] Bone Density: Region BMD T-score Z-score Classification AP Spine(L1-L4) 0.992 -0.5 0.9 Normal Femoral Neck (Left) 0.874 0.2 1.5 Normal Total Hip (Left) 0.994 0.4 1.4 Normal Femoral Neck (Right) 0.853 0.0 1.3 Normal Total Hip (Right) 0.993 0.4 1.4 Normal Femoral Neck Mean 0.863 0.1 1.4 Normal Total Hip Mean 0.993 0.4 1.4 Normal World Health Organization criteria for BMD impression classify patients as: Normal (T-score at or above -1.0), Osteopenia (T-score between -1.0 and -2.5), or Osteoporosis (T-score at or below -2.5). 10-year Fracture Risk: FRAX not reported because: All T-scores for Spine Total, Hip Total, Femoral Neck at or above -1.0 Clinical Information Provided by Patient: Has had a low trauma fracture Has the following medical conditions: Asthma or Emphysema, Cancer Patient maximum height was 62 Menopause Age: 43 No regular weight bearing exercise Does not regularly consume dairy products Drinks caffeinated beverages Onset of menses at age 9 Number of children 1 Impression: The patient has normal bone mass. The patient has risk factors, including: previous fracture. Discussion: BONE DENSITY IS ABOVE THE MINIMUM DESIRABLE LEVEL AT ALL SKELETAL SITES TESTED. This patient?s bone mineral density is above the minimum desirable level (T-score -1.0 or better) at all sites measured. The patient should follow a healthful lifestyle (good nutrition with adequate calcium and vitamin D, and appropriate weight-bearing exercise). Follow-Up: Consider repeating this study in 5 years or sooner if there is some new clinical indication. Reported by: Dr. Kehinde Al on 05/08/2024 10:56:00 AM. Reviewed, dictated and finalized at location [facility]
== END 2024-05-08 10:05 | disposition home or self-care (01) ==
LOC: CHSIMG 10:08
PROVIDERS: PCP Nurse Practitioner Family; Visit Provider Nurse Practitioner Family
DX: M19.90 Unspecified osteoarthritis, unspecified site (principal)
CPT/HCPCS: 70360; 73030; 73502; 77080

== ENCOUNTER 2024-05-29 18:17 | Outpatient (NON) | payer OTHER, SELFPAY | END 2024-05-29 18:18 | disposition home or self-care (01) | PROVIDERS: PCP Family Medicine; Visit Provider Nurse Practitioner Family | DX: N89.8 Other specified noninflammatory disorders of vagina (principal) | CPT/HCPCS: 87070; 87147 ==

== ENCOUNTER 2024-06-11 13:18 | Outpatient (CLI) | payer OTHER, SELFPAY ==
--- NOTE | ~2024-06-11 | MM_ITS ---
EXAMINATION: MM screening [facility] BI w jaja HISTORY: Screening TECHNIQUE: Craniocaudal and mediolateral oblique 3-D tomosynthesis images were obtained and synthetic 2-D images were generated. CAD analysis was submitted and interpreted. COMPARISON: Comparison to multiple prior studies sequentially, with oldest reviewed study dated 05/25. BREAST PARENCHYMAL COMPOSITION: Not Dense: The breasts are almost entirely fatty. FINDINGS: There is no evidence of suspicious mass, calcification, or architectural distortion to sugg est malignancy in either breast. There has been no suspicious interval change. IMPRESSION: 1. No mammographic evidence of malignancy. 2. Recommend routine screening mammography in one year. BI-RADS Category 1: Negative Reviewed, dictated and finalized at location B.
== END 2024-06-11 13:19 | disposition home or self-care (01) ==
LOC: CHSIMG 13:19
PROVIDERS: PCP Nurse Practitioner Family; Visit Provider Nurse Practitioner Family
DX: Z12.31 Encounter for screening mammogram for malignant neoplasm of breast (principal)
CPT/HCPCS: 77063; 77067

== ENCOUNTER 2024-07-04 07:38 | Outpatient (CLI) | payer OTHER, SELFPAY ==
[2024-07-04 07:53] LABS: Basophils Absolute Auto 0.05 K/mm3 (0.00-0.10); Basophils Percent Auto 0.3 % (0.0-1.0); Eosinophils Absolute Auto 0.17 K/mm3 (0.02-0.50); Eosinophils Percent Auto 1.1 % (1.0-6.0); Hematocrit 49.1 % (35.0-49.0); Hemoglobin 15.7 g/dL (12.0-15.0); Immature Granulocyte Absolute 0.08 K/mm3 (0.00-0.00); Immature Granulocyte Percent A 0.5 % (0.0-0.0); Lymphocytes Absolute Auto 7.29 K/mm3 (1.10-4.50); Lymphocytes Percent Auto 48.2 % (18.0-42.0); Mean Corpuscular Hemoglobin 29.5 pg (27.0-31.0); Mean Corpuscular Volume 92.3 fL (78.0-102.0); Mean Platelet Volume 9.6 fl (9.2-11.8); Monocytes Absolute Auto 0.65 K/mm3 (0.10-0.90); Monocytes Percent Auto 4.3 % (2.0-11.0); Neutrophils Percent Auto 45.6 % (50.0-70.0); Platelet Count Result 238 K/mm3 (150-420); Red Blood Count 5.32 M/mm3 (4.20-5.40); Red Cell Distribution Width 14.7 % (11.6-14.4); White Blood Count 15.1 K/mm3 (4.8-10.8)
[2024-07-04 08:20] LABS: Hemoglobin A1C 6.2 % (<5.7)
[2024-07-04 08:27] LABS: Alanine Aminotransferase 17 U/L (14-59); Albumin Level 3.7 g/dL (3.4-5.0); Alkaline Phosphatase 76 U/L (46-116); Anion Gap 9 mmol/L (4-12); Aspartate Amino Transferase 14 U/L (15-37); Bilirubin,Total 0.5 mg/dL (0.00-1.00); Blood Urea Nitrogen 13 mg/dL (7-18); Calcium 9.1 mg/dL (8.5-10.1); Carbon Dioxide 30 mmol/L (21-32); Chloride 103 mmol/L (98-108); Cholesterol 177 mg/dL (0-200); Estimated Glomerular Filt Rate > 60; Glucose 131 mg/dL (70-99); HDL Direct 55 mg/dL (40-60); Iron 57 ug/dL (50-170); LDL Cholesterol Calculated 83 mg/dL (<130); Osmolality Calculated 296 mOsm/kg (285-295); Potassium 4.4 mmol/L (3.5-5.1); Sodium 142 mmol/L (136-145); Total Protein 6.7 g/dL (6.4-8.2); Triglycerides 195 mg/dL (0-150)
== END 2024-07-04 07:39 | disposition home or self-care (01) ==
LOC: CHSLAB 07:39
PROVIDERS: PCP Nurse Practitioner Family; Visit Provider Nurse Practitioner Family
DX: E61.1 Iron deficiency (principal); D64.9 Anemia, unspecified; E11.9 Type 2 diabetes mellitus without complications; Z13.6 Encounter for screening for cardiovascular disorders; E78.5 Hyperlipidemia, unspecified; I10 Essential (primary) hypertension
CPT/HCPCS: 36415; 80053; 80061; 83036; 83540; 85025

== ENCOUNTER 2024-07-26 15:09 | Outpatient (CLI) | payer OTHER, SELFPAY ==
[2024-07-26 15:41] LABS: Basophils Absolute Auto 0.06 K/mm3 (0.00-0.10); Basophils Percent Auto 0.4 % (0.0-1.0); Eosinophils Absolute Auto 0.28 K/mm3 (0.02-0.50); Eosinophils Percent Auto 1.9 % (1.0-6.0); Hematocrit 46.8 % (35.0-49.0); Immature Granulocyte Absolute 0.06 K/mm3 (0.00-0.00); Immature Granulocyte Percent A 0.4 % (0.0-0.0); Lymphocytes Absolute Auto 8.26 K/mm3 (1.10-4.50); Lymphocytes Percent Auto 55.1 % (18.0-42.0); Mean Corpuscular HGB Conc 32.1 g/dL (32-36); Mean Corpuscular Hemoglobin 29.2 pg (27.0-31.0); Mean Corpuscular Volume 91.2 fL (78.0-102.0); Mean Platelet Volume 9.8 fl (9.2-11.8); Monocytes Absolute Auto 0.74 K/mm3 (0.10-0.90); Monocytes Percent Auto 4.9 % (2.0-11.0); Neutrophils Absolute Auto 5.58 K/mm3 (1.70-7.20); Neutrophils Percent Auto 37.3 % (50.0-70.0); Platelet Count Result 254 K/mm3 (150-420); Red Blood Count 5.13 M/mm3 (4.20-5.40); Red Cell Distribution Width 14.7 % (11.6-14.4)
[2024-07-26 16:25] LABS: Anion Gap 9 mmol/L (4-12); Blood Urea Nitrogen 12 mg/dL (7-18); Calcium 8.7 mg/dL (8.5-10.1); Carbon Dioxide 29 mmol/L (21-32); Chloride 101 mmol/L (98-108); Estimated Glomerular Filt Rate > 60; Glucose 159 mg/dL (70-99); Osmolality Calculated 290 mOsm/kg (285-295); Sodium 139 mmol/L (136-145)
== END 2024-07-26 15:10 | disposition home or self-care (01) ==
LOC: CHSLAB 15:11
PROVIDERS: PCP Nurse Practitioner Family; Visit Provider Nurse Practitioner Family
DX: C91.10 Chronic lymphocytic leukemia of B-cell type not having achieved remission (principal)
CPT/HCPCS: 36415; 80048; 85025

== ENCOUNTER 2024-10-24 07:46 | Outpatient (CLI) | payer OTHER, SELFPAY ==
[2024-10-24 08:07] LABS: Basophils Absolute Auto 0.04 K/mm3 (0.00-0.10); Basophils Percent Auto 0.3 % (0.0-1.0); Eosinophils Absolute Auto 0.24 K/mm3 (0.02-0.50); Eosinophils Percent Auto 1.9 % (1.0-6.0); Hematocrit 49.1 % (35.0-49.0); Hemoglobin 15.5 g/dL (12.0-15.0); Immature Granulocyte Absolute 0.05 K/mm3 (0.00-0.00); Immature Granulocyte Percent A 0.4 % (0.0-0.0); Lymphocytes Absolute Auto 7.53 K/mm3 (1.10-4.50); Lymphocytes Percent Auto 58.6 % (18.0-42.0); Mean Corpuscular HGB Conc 31.6 g/dL (32-36); Mean Corpuscular Hemoglobin 28.9 pg (27.0-31.0); Mean Corpuscular Volume 91.6 fL (78.0-102.0); Mean Platelet Volume 9.5 fl (9.2-11.8); Monocytes Absolute Auto 0.61 K/mm3 (0.10-0.90); Monocytes Percent Auto 4.7 % (2.0-11.0); Neutrophils Absolute Auto 4.38 K/mm3 (1.70-7.20); Neutrophils Percent Auto 34.1 % (50.0-70.0); Platelet Count Result 254 K/mm3 (150-420); Red Blood Count 5.36 M/mm3 (4.20-5.40); Red Cell Distribution Width 15.1 % (11.6-14.4); White Blood Count 12.9 K/mm3 (4.8-10.8)
[2024-10-24 08:15] LABS: Hemoglobin A1C 6.2 % (<5.7)
[2024-10-24 09:11] LABS: Alanine Aminotransferase 21 U/L (14-59); Albumin Level 3.8 g/dL (3.4-5.0); Alkaline Phosphatase 70 U/L (46-116); Anion Gap 10 mmol/L (4-12); Aspartate Amino Transferase 14 U/L (15-37); Bilirubin,Total 0.7 mg/dL (0.00-1.00); Blood Urea Nitrogen 12 mg/dL (7-18); Calcium 8.9 mg/dL (8.5-10.1); Carbon Dioxide 30 mmol/L (21-32); Chloride 103 mmol/L (98-108); Cholesterol 179 mg/dL (0-200); Estimated Glomerular Filt Rate > 60; Glucose 136 mg/dL (70-99); HDL Direct 54 mg/dL (40-60); Iron 74 ug/dL (50-170); LDL Cholesterol Calculated 90 mg/dL (<130); Osmolality Calculated 297 mOsm/kg (285-295); Potassium 4.6 mmol/L (3.5-5.1); Sodium 143 mmol/L (136-145); Total Protein 6.5 g/dL (6.4-8.2); Triglycerides 177 mg/dL (0-150)
[2024-10-25 08:03] LABS: Vitamin D 25 Hydroxy 28 ng/mL (30-100)
== END 2024-10-24 07:47 | disposition home or self-care (01) ==
LOC: CHSLAB 07:47
PROVIDERS: PCP Nurse Practitioner Family; Visit Provider Nurse Practitioner Family
DX: I10 Essential (primary) hypertension (principal); E11.9 Type 2 diabetes mellitus without complications; D64.9 Anemia, unspecified; E61.1 Iron deficiency; Z13.6 Encounter for screening for cardiovascular disorders; E78.5 Hyperlipidemia, unspecified; Z79.899 Other long term (current) drug therapy
CPT/HCPCS: 36415; 80053; 80061; 82306; 83036; 83540; 85025

== ENCOUNTER 2024-12-12 08:46 | Outpatient (CLI) | payer OTHER, SELFPAY ==
--- NOTE | ~2024-12-12 | MMUS_ITS ---
EXAMINATION: MM diagnostic juan j LT w jaja, US breast LT limited HISTORY: Left breast palpable area TECHNIQUE: 3-D tomosynthesis images of the left breast were performed and synthetic 2-D images were g enerated. CAD analysis was submitted and interpreted. High resolution limited left breast ultrasound was performed. COMPARISON: 06/11/2024, 06/06/2023, 06/02/2022, 05/25/2021 BREAST PARENCHYMAL COMPOSITION:Not Dense. The breasts are almost entirely fatty FINDINGS: MAMMOGRAPHIC FINDINGS: Stable parenchymal pattern of the left breast. Stable low-density probable intramammary lymph nodes a t the upper, outer aspect. No suspicious mass or distortion. No suspicious pelvic or calcification. ULTRASOUND: Targeted sonographic imaging of the area of concern at the 4:00 position demonstrates no solid or cys tic lesion. No dilated ducts seen. IMPRESSION: No evidence for malignancy. Stable left breast mammography. No mammographic or sonographic correlate seen for area of concern at the 4:00 position left breast. BI-RADS Category 2: Benign finding(s). Reviewed, dictated and finalized at location . H BURNER IMPRESSION: No evidence for malignancy. Stable left breast mammography. No mammographic or sonographic correlate seen for area of concern at the 4:00 position left breas t. BI-RADS Category 2: Benign finding(s).
--- OUTSIDE RECORDS SUMMARY | 2024-12-12 09:09 | XMS_ITS | Clinical Summary ---
Author Organization [facility] Address [address], [address] [address] Phone Care Team Providers Care Under Presser Name Role Phone Brianda Alfaro MD Primary Care Provider [phone] Social History Tobacco Use Types Packs/Day Years Used Date Smoking Tobacco: Never Assessed Comments Unknown Sex and Gender Information Value Date Recorded Sex Assigned at Not on file Legal Sex Female 11:07 AM [employer] Gender Identity Not on file Sexual Orientation Not on file Plan of Treatment Health Maintenance Due Date Last Done Comments Hepatitis C Virus (HCV) Screening 1965 TdaP Immunization 1965 Pap Smear 1984 Cervical Cancer Screening (CCS) 1993 HPV/Cotest 1993 Cologuard 2013 Immunochemical Fecal Occult Blood 2013 Mammogram 2013 Pneumococcal Immunization (5 0+ years) (1 of 1 - PCV) 2013 Zoster Immunization (1 of 2) 2013 Colonoscopy 11/08/2023 11/08/2018 Colorectal Cancer Screening 11/08/2023 Influenza Immunization (#1) 2024 SARS-COV-2 Immunization ( - 25 season) 2024 Respiratory Syncytial Virus (RSV) Immunization (Adult) (1 - 1-dose 75+ series) 2038 11/08/2018 Hepatitis B Immunization Aged Out No longer eligible based on patient's age to complete this topic Meningococcal Immunization (ACWY) Aged Out No longer eligible based on patient's age to complete this topic Pneumococcal Immunization Combined Aged Out No longer eligible based on patient's age to complete this topic Rotavirus Immunization Aged Out No lo nger eligible based on patient's age to complete this topic Procedures Procedure Name Priority Date/Time Associated Diagnosis Comments COLONOSCOPY Routine 11/08/2018 from Last 3 Months or Most Recently Relevant to Health Maintenance Results * COLONOSCOPY (11/08/2018) Reynaldo Silva DO PROCEDURE/MINOR SURGICAL ORDERA BLES Final Result from Last 3 Months or Most Recently Relevant to Health Maintenance Insurance MED[place]ID [place] Care Teams Under Presser Relationship Specialty Start Date End Date Brianda Alfaro MD [address] [place] [address] PCP - General Internal Medicine 11/13/18
--- OUTSIDE RECORDS SUMMARY | 2024-12-12 09:09 | XMS_ITS | Encounter Summary ---
Author Organization [facility] Address [address] [place] [address] Care Team Providers Care Policy Specialist Name Role Phone Unavailable Primary Care Provider Unavailabl e Encounter Details Date Type Department Care Team (Late st Contact Info) Description 12/10/2024 External Device Data [facility] ABSTRACTION Provider, Abstract NO ADDRESS ON FILE Social History Tobacco Use Types Packs/Day Years Used Date Smoking Tobacco: Some Days Cigarettes 1.8 44.9 Started: 01/23/2020 Alcohol Use Standard Drinks/Week Comments Never 0 (1 standard drink = 0.6 oz pur e alcohol) Comments Unknown Sex and Gender Information Value Date Recorded Sex Assigned at Not on file Legal Sex Female 8:34 AM CDT Gender Identity Not on file Sexual Orientation Not on file documented as of this encounter Plan of Treatment Upcoming Encounters Date Type Department Care Team (Late st Contact Info) Description 02/19/2025 3:45 PM CDT Office Visit [facility] Oncology and Hematology - [place] [address] [place] [address] [facility] [address] [place] [address] Tyron Melo MD [address] [facility] [address] [facility] [address] [place] [address] documented as of this encounter Visit Diagnoses Not on filedocumented in this encounter
--- OUTSIDE RECORDS SUMMARY | 2024-12-12 09:09 | XMS_ITS | Clinical Summary ---
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 [employer] Gender Identity Not on file Sexual Orientation Not on file Plan of Treatment Health Maintenance Due Date Last Done Comments Cervical Cancer Screening Pa p Smear (Age 30 to 64) Every 3 Years 1965 Colorectal Cancer Screening Colonoscopy (10 Years) 1963 Annual Physical 1966 Hepatitis C 1981 DTaP, Tdap and Td Vaccines ( 1 - Tdap) 1982 Cervical Cancer Screening Pa p with HPV Testing (Age 30 to 64) Every 5 Years 1993 Cervical Cancer Screening with HPV 1993 Mammogram Screening 2003 Zoster Vaccines (1 of 2) 2013 COVID-19 Vaccine (2023-2 5 season) 2024 Influenza Adult (#1) 2024 RSV Immunization or 60+ Years (1 - 1-dose 75+ series) 2038 Meningococcal B Vaccine Aged Out No l onger eligible based on patient's age to complete this topic Meningococcal Vaccine Aged Out No shruthi janie eligible based on patient's age to complete this topic Pneumococcal Vaccine: Pediat rics (0 to 5 Years) and At-Risk Patients (6 to 64 Years) Aged Out No longer eligible b ased on patient's age to complete this topic RSV Immunizations Under 20 Months Aged Out No longer eligible based on patient's age to complete this topic
--- OUTSIDE RECORDS SUMMARY | 2024-12-12 09:09 | XMS_ITS | Clinical Summary ---
Author Organization [facility] [employer] Address [address] [place] [address] Care Team Providers Care Fisher Trap Name Role Phone Unavailable Primary Care Provider Unavailabl e Source Comments [facility] [employer],non-owned Affiliates and Associated Physician Practices is amultiple site organization consisting of ambulatory clinics and hospital sitesin [place], [place], [place] and [place]. This disclosure is being madepursuant to the Care Everywhere program and may not contain all information available regarding this patient. Last updated 18.[employer] Allergies Active Allergy Reactions Criticality Noted Date Comments Penicillins 10/22/2016 Ceftriaxone Swelling 10/26/2019 Medications * Be aware that medications may not be up to date on this document. Alwaysverify current medications with the patient. Medication Sig Dispensed Refills Start Date End Date Status metFORMIN (GLUCOPHAGE) 500 MG tablet Take 500 mg by mouth 2 times daily with morning and evening meal Active glimepiride (AMARYL) 2 MG tablet Take 2 mg by mouth daily with breakfast Active lisinopril (PRINIVIL; ZESTRIL) 10 MG tablet Take 10 mg by mouth once daily Active ALBUTEROL IN Active azithromycin (ZITHROMAX) 250 MG tabletIndications:Ab normal lung sounds Take 2 tablets now, then 1 tablet daily for 4 days. 6 Tab 10/22/2016 Active Additional Information Patient not taking.Reported on 10/26/2019 pravastatin (PRAVACHOL) 10 MG tablet Take 10 mg by mouth at bedtime Active Social History Tobacco Use Types Packs/Day Years Used Date Smoking Tobacco: Every Day Smokeless Tobacco: Current Alcohol Use Standard Drinks/Week Comments Never 0 (1 standard drink = 0.6 oz pur e alcohol) AUDIT-C Answer Date Recorded Frequency of Alcohol Consumption Never 10/26/2019 Average Number of Drinks Not on file 020 Frequency of Binge Drinking Not on file 10/09 Sex and Gender Information Value Date Recorded Sex Assigned at Not on file Gender Identity Not on file Sexual Orientation Not on file Last Filed Vital Signs Vital Sign Reading Time Taken Comments Blood Pressure 146/88 10/26/2019 11:27 AM BREAD BAKER Pulse 103 10/26/2019 11:27 AM BREAD BAKER Temperature 36.9 C (98.4 F) 10/26/2019 11:27 AM BREAD BAKER Respiratory Rate 16 10/26/2019 11:27 AM BREAD BAKER Oxygen Saturation 97% 10/26/2019 11:27 AM BREAD BAKER Inhaled Oxygen Concentration - - Weight 111.1 kg (245 lb) 10/26/2019 11:27 AM BREAD BAKER Height 157.5 cm (5' 2 ) 10/26/2019 11:27 AM BREAD BAKER Body Mass Index 44.81 10/26/2019 11:27 AM BREAD BAKER Plan of Treatment Health Maintenance Due Date Last Done Comments COLOGUARD (AGES 45-75) - COL ON CA SCREENING 1963 COLON MONITORING 1963 COLONOSCOPY - COLON CA SCREENING 1963 CT COLONOGRAPHY - COLON CA SCREENING 1963 Colorectal Cancer Screening 1963 FIT - COLON CA SCREENING 1963 FLEX SIG - COLON CA SCREENING 1963 MAMMOGRAM 1963 PAP SMEAR 1963 HIV SCREENING 1978 HEPATITIS C SCREENING 11/12/1981 DTAP/TDAP/TD VACCINES (1 - Tdap) 1982 PNEUMOCOCCAL VACCINE (1 of 2 - PCV) 1982 PNEUMOCOCCAL VACCINE 50+ (1 of 1 - PCV) 2013 ZOSTER VACCINE (1 of 2) 2013 SCREENING FOR DIABETES 10/26/2019 Respiratory Syncytial Virus (RSV) Vaccine Pt: or over 60 yrs (1 - Risk 60-74 years 1-dose series) 2023 COVID-19 VACCINE (1 - 2023-2 5 season) 2024 INFLUENZA VACCINE (#1) 2024 DEPRESSION SCREENING 10/09/2024 HEPATITIS B VACCINE Aged Out No longe r eligible based on patient's age to complete this topic HIB VACCINE Aged Out No longer eligi ble based on patient's age to complete this topic HPV VACCINE Aged Out No longer eligi ble based on patient's age to complete this topic MENINGOCOCCAL (Group B) VACCINE Aged Out No longer eligible based on patient's age to complete this topic MENINGOCOCCAL VACCINE Aged Out No shruthi janie eligible based on patient's age to complete this topic
--- OUTSIDE RECORDS SUMMARY | 2024-12-12 09:09 | XMS_ITS | Referral Summary ---
Author Organization [facility] [employer] Address [address] [place] [address] Care Team Providers Care Lead Data Entry Operator Name Role Phone Unavailable Primary Care Provider Unavailabl e Source Comments [facility] [employer],non-owned Affiliates and Associated Physician Practices is amultiple site organization consisting of ambulatory clinics and hospital sitesin [place], [place], [place] and [place]. This disclosure is being madepursuant to the Care Everywhere program and may not contain all information available regarding this patient. Last updated 18.[employer] Allergies Active Allergy Reactions Criticality Noted Date [...] Comments Blood Pressure 146/88 10/26/2019 11:27 AM SLICING MACHINE OPERATOR/TENDER Pulse 103 10/26/2019 11:27 AM SLICING MACHINE OPERATOR/TENDER Temperature 36.9 C (98.4 F) 10/26/2019 11:27 AM SLICING MACHINE OPERATOR/TENDER Respiratory Rate 16 10/26/2019 11:27 AM SLICING MACHINE OPERATOR/TENDER Oxygen Saturation 97% 10/26/2019 11:27 AM SLICING MACHINE OPERATOR/TENDER Inhaled Oxygen Concentration - - Weight 111.1 kg (245 lb) 10/26/2019 11:27 AM SLICING MACHINE OPERATOR/TENDER Height 157.5 cm (5' 2 ) 10/26/2019 11:27 AM SLICING MACHINE OPERATOR/TENDER Body Mass Index 44.81 10/26/2019 11:27 AM SLICING MACHINE OPERATOR/TENDER Plan of Treatment Not on file
--- OUTSIDE RECORDS SUMMARY | 2024-12-12 09:09 | XMS_ITS | Clinical Summary ---
Author Organization [facility] [employer] Address [address] [place] [address] Care Team Providers Care Turbogenerator Operator Name Role Phone Unavailable Primary Care Provider Unavailabl e Allergies Active Allergy Reactions Criticality Noted Date Comments Ceftriaxone Swelling Low 10/26/2019 Penicillins Swelling Low 10/22/2016 Sulfamethoxazole Hives,Swelling High 01/23/2024 Medications glimepiride (AMARYL) 2 mg tablet Take 2 mg by mouth daily with breakfast. Active lisinopriL (PRINIVIL) 10 mg tablet Take 10 mg by mouth daily. Active metFORMIN (GLUCOPHAGE) 500 mg tablet Take 500 mg by mouth daily with breakfast. Active pravastatin (PRAVACHOL) 10 mg tablet Take 10 mg by mouth daily. Active empagliflozin (Jardiance) 25 mg tablet Take 25 mg by mouth daily in the morning. Active ALBUTEROL INHALATION Take by inhalation. Active aspirin (MELY) 325 mg tablet Take 325 mg by mouth daily. Active cyanocobalamin (VITAMIN B-12) 500 mcg tablet Take 2,500 mcg by mouth daily. Active ascorbic acid, vitamin C, (VITAMIN C) 1,000 mg Tablet Take 1,000 mg by mouth daily. Active POTASSIUM AMINOBENZOATE ORAL Take 99 mg by mouth daily. Active Breztri Aerosphere 160 mcg-9mcg-4.8mcg/a ctuation HFA aerosol inhaler Take 2 Puffs by inhalation 2 times daily. Active Trulicity 0.75 mg/0.5 mL injection Inject 0.75 mg by subcutaneous injection every 7 days. 03/18/20 24 Active Active Problems No known active problems Encounters Date Type Department Care Team Description 12/10/2024 External Device Data STL ABSTRACTION Provider, Abstract 11/27/2024 External Device Data STL ABSTRACTION Provider, Abstract 11/26/2024 External Device Data STL ABSTRACTION Provider, Abstract 11/14/2024 Telephone [facility] Oncology and Hematology [facility] [address] [place] [phone] Tyron Melo MD Appointment Correction 10/30/2024 External Device Data STL ABSTRACTION Provider, Abstract 10/29/2024 External Device Data STL ABSTRACTION Provider, Abstract 10/15/2024 External Device Data STL ABSTRACTION Provider, Abstract from Last 3 Months Family History Medical History Relation Name Comments Diabetes Brother Lung Cancer Brother No Known Problems Child Diabetes Father Breast Cancer Mother Cancer - Other Mother Diabetes Sister Relation Name Status Comments Brother Child Alive Father Mother Sister Alive Social History Tobacco Use Types Packs/Day Years Used Date Smoking Tobacco: Some Days Cigarettes 1.8 44.9 Started: 01/23/2020 Tobacco Cessation:Ready to Q uit: Not Asked; Counseling Given: Not Answered Alcohol Use Standard Drinks/Week Comments Never 0 (1 standard drink = 0.6 oz pur e alcohol) Comments Unknown Sex and Gender Information Value Date Recorded Sex Assigned at Not on file Legal Sex Female 8:34 AM CDT Gender Identity Not on file Sexual Orientation Not on file Last Filed Vital Signs Vital Sign Reading Time Taken Comments Blood Pressure 120/70 07/31/2024 11:03 AM CDT Pulse 87 04/17/2024 11:13 AM CDT Temperature 36.7 C (98 F) 07/31/2024 11:03 AM CDT Respiratory Rate 16 07/31/2024 11:03 AM CDT Oxygen Saturation 97% 07/31/2024 11:03 AM CDT Inhaled Oxygen Concentration - - Weight 104.3 kg (230 lb) 07/31/2024 11:03 AM CDT Height 157.5 cm (5' 2 ) 01/23/2024 10:38 AM CDT Body Mass Index 42.07 01/23/2024 10:38 AM CDT Plan of Treatment Upcoming Encounters Date Type Department Care Team (Late st Contact Info) Description 02/19/2025 3:45 PM CDT Office Visit [facility] Oncology and Hematology [facility] [address] [place] [phone] Tyron Melo MD [address] [place] [phone] Health Maintenance Due Date Last Done Comments Pre-Diabetes and Diabetes Screening 1963 DTAP/TDAP/TD VACCINES (1 - Tdap) 1982 Preventative Visit-Managed Medicaid 1982 ZOSTER VACCINE (1 of 2) 1982 CERVICAL CANCER SCREENING 1993 FIT-DNA Q 3 years 2008 FIT/FOBT Q 1 year 2008 Flex Sig/CT Colonography Q 5 years 2008 Lung Cancer Screening 2013 RSV VACCINE (60+ or ) (1 - Risk 60-74 years 1-dose series) 2023 INFLUENZA VACCINE (#1) 2024 BREAST CANCER SCREENING 06/11/2025 06/11/2024 COLORECTAL SCREENING 11/08/2028 11/08/2018 Colorectal Cancer Screening 11/08/2028 Procedures Procedure Name Priority Date/Time Associated Diagnosis Comments MAMMO SCREENING BILAT Routine 06/11/2024 1:34 PM CDT from Last 3 Months or Most Recently Relevant to Health Maintenance Results * MAMMO SCREENING BILAT (06/11/2024 1:34 PM CDT) Anatomical Region Laterality Modality Breast Bilateral Other Tyron Melo MD MAMMO ORDERABLES Final Result from Last 3 Months or Most Recently Relevant to Health Maintenance Insurance [place]
--- OUTSIDE RECORDS SUMMARY | 2024-12-12 09:09 | XMS_ITS | Patient Health Summary ---
Author Organization [facility] [employer] Address [address] [place] [address] Care Team Providers Care Integration Solution Architect Name Role Phone Unavailable Primary Care Provider Unavailabl e Note from [facility],non-owned Affiliates and Associated Physician Practices is amultiple site organization consisting of ambulatory clinics and hospital sitesin [place], [place], [place] and [place]. This disclosure is being madepursuant to the Care Everywhere program and may not contain all information available regarding this patient. Last updated 18.[facility] [employer] Allergies * Penicillins * Ceftriaxone(Swelling) Medications * Be aware that medications may not be up to date on this document. Alwaysverify current medications with the patient. * metFORMIN (GLUCOPHAGE) 500 MG tablet Take 500 mg by mouth 2 times daily with morning and evening meal * glimepiride (AMARYL) 2 MG tablet Take 2 mg by mouth daily with breakfast * lisinopril (PRINIVIL; ZESTRIL) 10 MG tablet Take 10 mg by mouth once daily * ALBUTEROL IN * azithromycin (ZITHROMAX) 250 MG tablet(Started 10/22/2016) Take 2 tablets now, then 1 tablet daily for 4 days. * pravastatin (PRAVACHOL) 10 MG tablet Take 10 mg by mouth at bedtime Social History Tobacco Use Types Packs/Day Years [...] Comments Blood Pressure 146/88 10/26/2019 11:27 AM PHOTOGRAPHER AERIAL Pulse 103 10/26/2019 11:27 AM PHOTOGRAPHER AERIAL Temperature 36.9 C (98.4 F) 10/26/2019 11:27 AM PHOTOGRAPHER AERIAL Respiratory Rate 16 10/26/2019 11:27 AM PHOTOGRAPHER AERIAL Oxygen Saturation 97% 10/26/2019 11:27 AM PHOTOGRAPHER AERIAL Inhaled Oxygen Concentration - - Weight 111.1 kg (245 lb) 10/26/2019 11:27 AM PHOTOGRAPHER AERIAL Height 157.5 cm (5' 2 ) 10/26/2019 11:27 AM PHOTOGRAPHER AERIAL Body Mass Index 44.81 10/26/2019 11:27 AM PHOTOGRAPHER AERIAL Procedures * INFLUENZA A+B - POINT OF CARE (AMB)(Performed 10/22/2016) Performed for Acute URI Results * INFLUENZA A+B - POINT OF CARE (AMB) (10/22/2016) Influenza A Antigen Rapid Negative Negative Influenza B Antigen Rapid Negative Negative Influenza Internal Control yes NEGATIVE - POSITIVE Influenza Lot Number [id number] Influenza Expiration Date Other NASOPHARYNGEAL SWAB / Unknown 10/22/2016 Manju Valle APRN-OPTICAL ADVISOR LAB - POINT OF CARE ORDERABLES
== END 2024-12-12 08:47 | disposition home or self-care (01) ==
LOC: CHSIMG 08:46
PROVIDERS: PCP Nurse Practitioner Family; Visit Provider Nurse Practitioner Family
DX: N63.25 Unspecified lump in the left breast, overlapping quadrants (principal)
CPT/HCPCS: 76642; 77061; 77065; G0279

== ENCOUNTER 2025-01-28 08:32 | Outpatient (CLI) | payer OTHER, SELFPAY ==
[2025-01-28 08:46] LABS: Hematocrit 49.5 % (35.0-49.0); Hemoglobin 15.2 g/dL (12.0-15.0); Mean Corpuscular HGB Conc 30.7 g/dL (32-36); Mean Corpuscular Hemoglobin 28.4 pg (27.0-31.0); Mean Corpuscular Volume 92.4 fL (78.0-102.0); Mean Platelet Volume 9.7 fl (9.2-11.8); Platelet Count Result 244 K/mm3 (150-420); Red Blood Count 5.36 M/mm3 (4.20-5.40); Red Cell Distribution Width 15.4 % (11.6-14.4); White Blood Count 13.1 K/mm3 (4.8-10.8)
--- OUTSIDE RECORDS SUMMARY | 2025-01-28 08:52 | XMS_ITS | Clinical Summary ---
Author Organization [facility] [employer] Address [address] [place] [address] Care Team Providers Care System Developer Associate Manager Name Role Phone Unavailable Primary Care Provider [...] Encounters Date Type Department Care Team Description 01/07/2025 External Device Data STL ABSTRACTION Provider, Abstract 12/25/2024 External Device Data STL ABSTRACTION Provider, Abstract 12/17/2024 External Device Data STL ABSTRACTION Provider, Abstract 12/17/2024 External Device Data STL ABSTRACTION Provider, Abstract 12/16/2024 External Device Data STL ABSTRACTION Provider, Abstract 12/14/2024 External Device Data STL ABSTRACTION Provider, Abstract 12/13/2024 External Device Data STL ABSTRACTION Provider, Abstract 12/10/2024 External Device Data STL ABSTRACTION Provider, Abstract 11/27/2024 External Device Data STL ABSTRACTION Provider, Abstract 11/26/2024 External Device Data STL ABSTRACTION Provider, Abstract 11/14/2024 Telephone [facility] Oncology and Hematology - [place] [address] [place] [address] Tyron Melo MD Appointment Correction 10/30/2024 External [...] Date Smoking Tobacco: Some Days Cigarettes 1.8 45 Started: 01/23/2020 Tobacco Cessation:Ready to Q uit: [...] Description 02/19/2025 3:45 PM CDT Office Visit [facility] Oncology and Hematology - [place] [address] [facility] [address] [place] [address] Tyron Melo MD [address] [place] [address] Health Maintenance Due Date Last Done Comments Pre-Diabetes and Diabetes Screening 1963 DTAP/TDAP/TD VACCINES (1 - Tdap) 1982 Preventative Visit-Managed Medicaid 1982 ZOSTER VACCINE (1 of 2) 1982 HPV/Cotest (21-29) 1984 PAP SMEAR 1984 CERVICAL CANCER SCREENING 1993 HPV/Cotest (30-65) 1993 PAP SMEAR 1993 FIT-DNA Q 3 years 2008 FIT/FOBT [...] CDT) Anatomical Region Laterality Modality Breast Bilateral Mammography Tyron Melo MD MAMMO ORDERABLES Final Result from Last 3 Months or Most Recently Relevant to Health Maintenance Insurance [place]
--- OUTSIDE RECORDS SUMMARY | 2025-01-28 08:52 | XMS_ITS | Clinical Summary ---
Author Organization [facility] Address [facility] [place] [address] Care Team Providers Care Twisthand Name Role Phone Unavailable Primary Care Provider Unavailabl e Social History Tobacco Use Types Packs/Day Years Used Date Smoking Tobacco: Never Assessed Comments Unknown Sex and Gender Information Value Date Recorded Sex Assigned at Not on file Legal Sex Female 5:59 PM APPLICATIONS SALES CONSULTANT Gender Identity Not on file Sexual Orientation [...] Screening with HPV 1993 Mammogram Screening 2003 Pneumococcal Vaccine: 50+ Ye ars (1 of 1 - PCV) 2013 Zoster Vaccines (1 of 2) 2013 COVID-19 Vaccine (2023-2 5 season) 2024 RSV Immunization or 60+ Years (1 [...]
--- OUTSIDE RECORDS SUMMARY | 2025-01-28 08:52 | XMS_ITS | Clinical Summary ---
Author Organization [facility] [employer] Address [address] [place] [address] Care Team Providers Care Steel Box Toe Inserter Name Role Phone Unavailable Primary Care Provider Unavailabl e Source Comments [facility] [employer],non-owned Affiliates and Associated Physician Practices is amultiple site organization consisting of ambulatory clinics and hospital sitesin [place], [place], [place] and [place]. This disclosure is being madepursuant to the Care Everywhere program and may not contain all information available regarding this patient. Last updated 18.[employer] Allergies Active Allergy Reactions Criticality Noted Date Comments Penicillins 10/22/2016 Ceftriaxone Swelling 10/26/2019 Medications * Be aware that medications may not be up to date on this document. Alwaysverify current medications with the patient. metFORMIN (GLUCOPHAGE) 500 MG tablet Take 500 mg by mouth 2 times daily with morning and evening meal Active glimepiride (AMARYL) 2 MG tablet Take 2 mg by mouth daily with breakfast Active lisinopril (PRINIVIL; ZESTRIL) 10 MG tablet Take 10 mg by mouth once daily Active ALBUTEROL IN Active azithromycin (ZITHROMAX) 250 MG tabletIndicatio ns:Abnormal lung sounds Take 2 tablets now, then 1 tablet daily for 4 days. 6 Tab 7 Active Additional Information Patient not taking.Reported on [...] of Binge Drinking Not on file 10/09 Comments No Sex and Gender Information Value Date Recorded Sex Assigned at Not on file Legal Sex Female 12:12 PM OVERLOCK HEMMER Gender Identity Not on file Sexual Orientation Not on file Last Filed Vital Signs Vital Sign Reading Time Taken Comments Blood Pressure 146/88 10/26/2019 11:27 AM OVERLOCK HEMMER Pulse 103 10/26/2019 11:27 AM OVERLOCK HEMMER Temperature 36.9 C (98.4 F) 10/26/2019 11:27 AM OVERLOCK HEMMER Respiratory Rate 16 10/26/2019 11:27 AM OVERLOCK HEMMER Oxygen Saturation 97% 10/26/2019 11:27 AM OVERLOCK HEMMER Inhaled Oxygen Concentration - - Weight 111.1 kg (245 lb) 10/26/2019 11:27 AM OVERLOCK HEMMER Height 157.5 cm (5' 2 ) 10/26/2019 11:27 AM OVERLOCK HEMMER Body Mass Index 44.81 10/26/2019 11:27 AM OVERLOCK HEMMER Plan of Treatment Health Maintenance Due Date Last Done Comments COLOGUARD (AGES 45-75) - COL ON CA SCREENING 1963 COLON MONITORING 1963 COLONOSCOPY - COLON CA SCREENING 1963 CT COLONOGRAPHY - COLON CA SCREENING 1963 Colorectal Cancer Screening 1963 FIT - COLON CA SCREENING 1963 FLEX SIG - COLON CA SCREENING 1963 MAMMOGRAM 1963 HIV SCREENING 1978 HEPATITIS C SCREENING 11/12/1981 DTAP/TDAP/TD VACCINES (1 - Tdap) 1982 PNEUMOCOCCAL VACCINE 50+ (1 of 1 - PCV) 2013 ZOSTER VACCINE (1 of 2) 2013 SCREENING FOR DIABETES 10/26/2019 COVID-19 VACCINE ( - 2023-2 5 season) 2024 DEPRESSION SCREENING 10/09/2024 INFLUENZA VACCINE (Season Ended) 2025 Respiratory Syncytial Virus (RSV) Vaccine Pt: or over 60 yrs (1 - 1-dose 75+ series) 2038 HEPATITIS B VACCINE Aged Out No longe r eligible based on patient's age to complete this topic HIB VACCINE Aged Out No longer eligi ble based on patient's age to complete this topic HPV VACCINE Aged Out No longer eligi ble based on patient's age to complete this topic MENINGOCOCCAL (Group B) VACC INE SHARED DECISION-MAKING Aged Out No longer eligibl e based on patient's age to complete this topic MENINGOCOCCAL GROUPS A/C/Y/W VACCINE Aged Out No longer eligible b ased on patient's age to complete this topic Insurance [facility]
--- OUTSIDE RECORDS SUMMARY | 2025-01-28 08:52 | XMS_ITS | Clinical Summary ---
Author Organization [facility] Address [address], [address] [address] Phone Care Team Providers Care Band Cutting Machine Operator Name Role Phone Brianda Alfaro MD Primary Care Provider [phone] Social History Tobacco Use Types Packs/Day Years Used Date Smoking Tobacco: Never Assessed Comments Unknown Sex and Gender Information Value Date Recorded Sex Assigned at Not on file Legal Sex Female 11:07 AM PACK TRAIN DRIVER Gender Identity Not on file Sexual Orientation [...] Recently Relevant to Health Maintenance Insurance [place]ICAID [place] Care Teams Band Cutting Machine Operator Relationship Specialty Start Date End Date Brianda Alfaro MD [address] [place] [address] PCP - General Internal Medicine 11/13/18
[2025-01-28 09:00] LABS: Band Neutrophils Percent 0 % (0-6); Lymphocytes Absolute Manual 7.46 K/mm3 (1.1-4.5); Lymphocytes Percent Manual 57 % (18-44); Monocytes Absolute Manual 0.65 K/mm3 (0.1-0.90); Monocytes Percent Manual 5 % (3-9); Neutrophils Absolute Manual 4.97 K/mm3 (1.7-7.2); Neutrophils Percent Manual 38 % (46-73); Platelet Estimate Adequate (Adequate); Total Cells Counted 100
[2025-01-28 09:06] LABS: Creatinine Urine 50.56 mg/dL (40-278); MALB Creatinine Ratio 25.7 mg/g (0-30); Microalbumin Urine Random < 13.0 mg/L
[2025-01-28 09:08] LABS: Hemoglobin A1C 6.8 % (<5.7)
[2025-01-28 09:11] LABS: Alanine Aminotransferase 17 U/L (14-59); Albumin Level 3.6 g/dL (3.4-5.0); Alkaline Phosphatase 85 U/L (46-116); Anion Gap 6 mmol/L (4-12); Aspartate Amino Transferase < 10 U/L (15-37); Bilirubin,Total 0.6 mg/dL (0.00-1.00); Blood Urea Nitrogen 15 mg/dL (7-18); Calcium 8.7 mg/dL (8.5-10.1); Carbon Dioxide 31 mmol/L (21-32); Chloride 104 mmol/L (98-108); Cholesterol 189 mg/dL (0-200); Estimated Glomerular Filt Rate > 60; Glucose 158 mg/dL (70-99); HDL Direct 56 mg/dL (40-60); Iron 59 ug/dL (50-170); LDL Cholesterol Calculated 85 mg/dL (<130); Osmolality Calculated 295 mOsm/kg (285-295); Potassium 4.6 mmol/L (3.5-5.1); Sodium 141 mmol/L (136-145); Total Protein 6.6 g/dL (6.4-8.2); Triglycerides 238 mg/dL (0-150)
[2025-01-30 02:09] LABS: Vitamin D 25 Hydroxy 37 ng/mL (30-100)
== END 2025-01-28 08:33 | disposition home or self-care (01) ==
PROVIDERS: PCP Nurse Practitioner Family; Visit Provider Nurse Practitioner Family
DX: E11.9 Type 2 diabetes mellitus without complications (principal); Z13.6 Encounter for screening for cardiovascular disorders; E78.5 Hyperlipidemia, unspecified; Z79.899 Other long term (current) drug therapy; D64.9 Anemia, unspecified; E61.1 Iron deficiency; I10 Essential (primary) hypertension
CPT/HCPCS: 36415; 80053; 80061; 82043; 82306; 83036; 83540; 85025

== ENCOUNTER 2025-02-19 14:33 | Outpatient (CLI) | payer OTHER, SELFPAY ==
--- OUTSIDE RECORDS SUMMARY | 2025-02-19 14:36 | XMS_ITS | Clinical Summary ---
Author Organization [facility] Tamara Thomason Address [address] [place] [address] Care Team Providers Care Metal Riveting Machine Operator Name Role Phone Unavailable Primary Care [...] Date Smoking Tobacco: Some Days Cigarettes 1.8 45.1 Started: 01/23/2020 Tobacco Cessation:Ready to Q uit: [...] Description 02/19/2025 3:45 PM CDT Office Visit [facility] Oncology and Hematology - [place] [address] [place] [phone] Tyron Melo MD [address] [facility] [address] [place] [phone] Health Maintenance Due Date Last Done Comments Pre-Diabetes and Diabetes Screening 1963 DTAP/TDAP/TD VACCINES (1 - Tdap) 1982 ZOSTER VACCINE (1 of 2) 1982 HPV/Cotest (21-29) 1984 CERVICAL CANCER SCREENING 1993 HPV/Cotest (30-65) [...]
--- OUTSIDE RECORDS SUMMARY | 2025-02-19 14:36 | XMS_ITS | Clinical Summary ---
Author Organization [facility] Address [facility] [place] [address] Care Team Providers Care Slip Cover Estimator Name Role Phone Unavailable Primary Care Provider Unavailabl e Social History Tobacco Use Types Packs/Day Years Used Date Smoking Tobacco: Never Assessed Comments Unknown Sex and Gender Information Value Date Recorded Sex Assigned at Not on file Legal Sex Female 5:59 PM SPECIAL EDUCATION TEACHING ASSISTANT Gender Identity Not on file Sexual Orientation [...]
--- OUTSIDE RECORDS SUMMARY | 2025-02-19 14:36 | XMS_ITS | Clinical Summary ---
Author Organization [facility] Address [address], [address] [address] Phone Care Team Providers Care Founding Partner Name Role Phone Brianda Alfaro MD Primary Care Provider [phone] Social History Tobacco Use Types Packs/Day Years Used Date Smoking Tobacco: Never Assessed Comments Unknown Sex and Gender Information Value Date Recorded Sex Assigned at Not on file Legal Sex Female 11:07 AM MARINA MANAGER Gender Identity Not on file Sexual Orientation [...] Recently Relevant to Health Maintenance Insurance MEDICAID [place] Care Teams Founding Partner Relationship Specialty Start Date End Date Brianda Alfaro MD [address] [place] [address] PCP - General Internal Medicine 11/13/18
--- OUTSIDE RECORDS SUMMARY | 2025-02-19 14:36 | XMS_ITS | Clinical Summary ---
Author Organization [facility] [employer] Address [address] [place] [address] Care Team Providers Care Intelligence Agent Name Role Phone Unavailable Primary Care Provider Unavailabl e Source Comments [facility] [employer],non-owned Affiliates and Associated Physician Practices is amultiple site organization consisting of ambulatory clinics and hospital sitesin [place], [place], [place] and [place]. This disclosure is being madepursuant to the Care Everywhere program and may not contain all information available regarding this patient. Last updated 18.[employer] Allergies Active Allergy Reactions Criticality Noted Date [...] on file Legal Sex Female 12:12 PM FOAM RUBBER CURER Gender Identity Not on file Sexual Orientation Not on file Last Filed Vital Signs Vital Sign Reading Time Taken Comments Blood Pressure 146/88 10/26/2019 11:27 AM FOAM RUBBER CURER Pulse 103 10/26/2019 11:27 AM FOAM RUBBER CURER Temperature 36.9 C (98.4 F) 10/26/2019 11:27 AM FOAM RUBBER CURER Respiratory Rate 16 10/26/2019 11:27 AM FOAM RUBBER CURER Oxygen Saturation 97% 10/26/2019 11:27 AM FOAM RUBBER CURER Inhaled Oxygen Concentration - - Weight 111.1 kg (245 lb) 10/26/2019 11:27 AM FOAM RUBBER CURER Height 157.5 cm (5' 2 ) 10/26/2019 11:27 AM FOAM RUBBER CURER Body Mass Index 44.81 10/26/2019 11:27 AM FOAM RUBBER CURER Plan of Treatment Health Maintenance Due Date [...] patient's age to complete this topic Insurance [facility]
[2025-02-19 14:47] LABS: Basophils Absolute Auto 0.1 K/mm3 (0.0-0.1); Basophils Percent Auto 0.5 % (0.2-1.2); Eosinophils Absolute Auto 0.2 K/mm3 (0-0.3); Eosinophils Percent Auto 1.7 % (0-4.4); Hematocrit 48.6 % (37.0-47.0); Hemoglobin 15.5 g/dL (12.0-15.0); Immature Granulocyte Absolute 0.04 K/mm3 (0.00-0.031); Immature Granulocyte Percent A 0.3 % (0-0.5); Lymphocytes Absolute Auto 7.28 K/mm3 (0.9-3.2); Lymphocytes Percent Auto 53.2 % (18.3-44.2); Mean Corpuscular HGB Conc 31.9 g/dl (32-36); Mean Corpuscular Hemoglobin 29.5 pg (26-34); Mean Corpuscular Volume 92.6 fl (80-100); Mean Platelet Volume 9.7 fl (7.4-10.4); Monocytes Absolute Auto 0.8 K/mm3 (0.1-0.6); Monocytes Percent Auto 5.6 % (2.6-8.5); Neutrophils Absolute Auto 5.3 K/mm3 (1.3-6.7); Neutrophils Percent Auto 38.7 % (45.5-73.1); Platelet Count Result 260 k/mm3 (150-375); Red Blood Count 5.25 M/mm3 (4.2-5.4); Red Cell Distribution Width 15.4 % (11.5-14.5); White Blood Count 13.7 K/mm3 (4.5-10.0)
[2025-02-19 14:49] LABS: Blood Urea Nitrogen 15 mg/dL (8-26); Carbon Dioxide 25 mmol/L (22-30); Chloride 103 mmol/L (98-109); Estimated Glomerular Filt Rate > 60; Glucose 155 mg/dL (70-105); Ionized Calcium (POC) 1.13 mmol/L (1.11-1.31); Potassium 3.9 mmol/L (3.5-4.9); Sodium 140 mmol/L (138-146)
[2025-02-19 14:50] LABS: Platelet Estimate Adequate (Adequate); Schistocytes None Seen
[2025-02-19 14:54] LABS: Anisocytosis 1+; Atypical Lymphocytes Present
== END 2025-02-19 14:34 | disposition home or self-care (01) ==
LOC: ANHLAB 14:34
PROVIDERS: PCP Nurse Practitioner Family; Visit Provider Internal Medicine Hematology & Oncology
DX: C91.10 Chronic lymphocytic leukemia of B-cell type not having achieved remission (principal)
CPT/HCPCS: 36415; 80047; 85025

== ENCOUNTER 2025-02-26 12:54 | Outpatient (CLI) | payer OTHER, SELFPAY ==
--- NOTE | ~2025-02-26 | XR_ITS ---
Right Knee Technique: AP, lateral, and sunrise views were obtained. Clinical History: Pain Findings: No fracture or dislocation is seen. Osseous alignment is anatomic. Joint spaces are preserv ed, with mild degenerative spurring. Soft tissues are unremarkable. No joint effusion is seen. Impression: Mild tricompartmental degenerative spurring. Reviewed, dictated and finalized at location . Impression: Mild tricompartmental degenerative spurring.
--- OUTSIDE RECORDS SUMMARY | 2025-02-26 12:58 | XMS_ITS | Encounter Summary ---
Author Organization [facility] Address [address] [place] [address] Care Team Providers Care Acquisition Cost Estimator Name Role Phone Unavailable Primary Care Provider Unavailabl e Encounter Details Date Type Department Care Team (Late st Contact Info) Description 02/25/2025 External Device Data STL ABSTRACTION Provider, Abstract NO ADDRESS ON FILE Social History Tobacco Use Types Packs/Day Years Used Date Smoking Tobacco: Some Days Cigarettes 1.8 45.1 Started: 01/23/2020 Alcohol Use Standard Drinks/Week Comments [...] Care Team (Late st Contact Info) Description 08/27/2025 10:15 AM CEMENT MASON Office Visit [facility] Oncology and Hematology - Richard [address] [facility] [address] [place] [address] Tyron Melo MD [address] [place] [address] documented as of this encounter Visit Diagnoses Not on filedocumented in this encounter
--- OUTSIDE RECORDS SUMMARY | 2025-02-26 12:58 | XMS_ITS | Clinical Summary ---
Author Organization [facility] Address [address], [address] [address] Phone Care Team Providers Care Building Service Worker Name Role Phone Brianda Alfaro MD Primary Care Provider Social History Tobacco Use Types Packs/Day Years Used Date Smoking Tobacco: Never Assessed Comments Unknown Sex and Gender Information Value Date Recorded Sex Assigned at Not on file Legal Sex Female 11:07 AM LINK AND LINK KNITTING MACHINE OPERATOR Gender Identity Not on file Sexual Orientation [...] Recently Relevant to Health Maintenance Insurance MEDICAID [place] Care Teams Building Service Worker Relationship Specialty Start Date End Date Brianda Alfaro MD [address] [place] [address] PCP - General Internal Medicine 11/13/18
--- OUTSIDE RECORDS SUMMARY | 2025-02-26 12:58 | XMS_ITS | Encounter Summary ---
Author Organization [facility] [employer] [facility] Address [address] [place] [address] Care Team Providers Care Information Systems Supervisor Name Role Phone Unavailable Primary Care Provider Unavailabl e Encounter Details Date Type Department Care Team ([facility] Contact Info) Description 02/20/2025 Orders Only [facility] Oncology and Hematology [facility] [address] [place] [address] Tyron Melo MD [facility] [employer] [address] [place] [address] Social History Tobacco Use Types Packs/Day Years [...] Encounters Date Type Department Care Team (Late Contact Info) Description 08/27/2025 10:15 AM ADVERTISEMENT COMPOSITOR Office Visit [facility] Oncology and Hematology [facility] [address] [place] [address] Tyron Melo MD [facility] [employer] [address] [place] [address] documented as of this encounter Procedures Procedure Name Priority Date/Time Associated Diagnosis Comments BASIC METABOLIC PANEL Routine 02/19/2025 1:09 PM CDT CBC WITH AUTODIFFERENTIAL Routine 2024 11:49 AM CDT documented in this encounter Results * BASIC METABOLIC PANEL (02/19/2025 1:09 PM CDT) Blood us Tyron Melo MD CHEMISTRY ORDERABLES Final Resu lt * CBC WITH AUTODIFFERENTIAL (02/19/2025 11:49 AM CDT) Blood us Tyron Melo MD HEMATOLOGY ORDERABLES Final Res ult documented in this encounter Visit Diagnoses Not on filedocumented in this encounter
--- OUTSIDE RECORDS SUMMARY | 2025-02-26 12:58 | XMS_ITS | Clinical Summary ---
Author Organization [facility] [email or web address] Address [address] [place] [address] Care Team Providers Care Tavern Operator Name Role Phone Unavailable Primary Care Provider Unavailabl e Source Comments [facility] [email or web address],non-owned Affiliates and Associated Physician Practices is amultiple site organization consisting of ambulatory clinics and hospital sitesin [place], [place], [place] and [place]. This disclosure is being madepursuant to the Care Everywhere program and may not contain all information available regarding this patient. Last updated 18.[email or web address] Allergies Active Allergy Reactions Criticality Noted Date [...] on file Legal Sex Female 12:12 PM MARKETING COMMUNICATION MANAGER Gender Identity Not on file Sexual Orientation Not on file Last Filed Vital Signs Vital Sign Reading Time Taken Comments Blood Pressure 146/88 10/26/2019 11:27 AM MARKETING COMMUNICATION MANAGER Pulse 103 10/26/2019 11:27 AM MARKETING COMMUNICATION MANAGER Temperature 36.9 C (98.4 F) 10/26/2019 11:27 AM MARKETING COMMUNICATION MANAGER Respiratory Rate 16 10/26/2019 11:27 AM MARKETING COMMUNICATION MANAGER Oxygen Saturation 97% 10/26/2019 11:27 AM MARKETING COMMUNICATION MANAGER Inhaled Oxygen Concentration - - Weight 111.1 kg (245 lb) 10/26/2019 11:27 AM MARKETING COMMUNICATION MANAGER Height 157.5 cm (5' 2 ) 10/26/2019 11:27 AM MARKETING COMMUNICATION MANAGER Body Mass Index 44.81 10/26/2019 11:27 AM MARKETING COMMUNICATION MANAGER Plan of Treatment Health Maintenance Due Date [...] patient's age to complete this topic Insurance [facility]
--- OUTSIDE RECORDS SUMMARY | 2025-02-26 12:58 | XMS_ITS | Clinical Summary ---
Author Organization [facility] Address [address] [place] [address] Care Team Providers Care Stone Mason Name Role Phone Unavailable Primary Care Provider [...] Encounters Date Type Department Care Team Description 02/25/2025 External Device Data STL ABSTRACTION Provider, Abstract 02/20/2025 Orders Only [facility] Oncology and Hematology - Richard [address] [place] [address] Tyron Melo MD 02/19/2025 3:45 PM CDT Office Visit [facility] Oncology and Hematology [facility] [address] [place] [address] Tyron Melo MD CLL (chronic lymphocytic leukemia) (CMS/[facility]) (Primary Dx) 01/07/2025 External Device Data STL ABSTRACTION Provider, [...] Sign Reading Time Taken Comments Blood Pressure 127/83 02/19/2025 3:24 PM CDT Pulse 107 02/19/2025 3:24 PM CDT Temperature 35.9 C (96.7 F) 02/19/2025 3:24 PM CDT Respiratory Rate 16 02/19/2025 3:24 PM CDT Oxygen Saturation 94% 02/19/2025 3:24 PM CDT Inhaled Oxygen Concentration - - Weight 108.8 kg (239 lb 12.8 oz) 02/19/2025 3:24 PM CDT Height 157.5 cm (5' 2 ) 01/23/2024 10:3 8 AM CDT Body Mass Index 43.86 01/23/2024 10:38 AM CDT Plan of Treatment Upcoming Encounters Date Type Department Care Team (Late st Contact Info) Description 08/27/2025 10:15 AM PEST CONTROL SERVICE TECHNICIAN Office Visit [facility] Oncology and Hematology [facility] [address] [facility] [address] [place] [address] Tyron Melo MD [address] [facility] [address] [place] [address] Health Maintenance Due Date Last [...] WITH AUTODIFFERENTIAL Routine 2024 11:49 AM CDT MAMMO SCREENING BILAT Routine 06/11/2024 1:34 PM CDT from Last 3 Months or Most Recently Relevant to Health Maintenance Results * BASIC METABOLIC PANEL (02/19/2025 1:09 PM CDT) Blood Tyron Melo MD CHEMISTRY ORDERABLES Final Resu lt * CBC WITH AUTODIFFERENTIAL (02/19/2025 11:49 AM CDT) Blood Tyron Melo MD HEMATOLOGY ORDERABLES Final Res ult * MAMMO SCREENING BILAT (06/11/2024 1:34 PM CDT) Anatomical Region Laterality Modality Breast Bilateral Mammography Tyron Melo MD MAMMO ORDERABLES Final Result from Last 3 Months or Most Recently Relevant to Health Maintenance Insurance [place]
== END 2025-02-26 12:55 | disposition home or self-care (01) ==
LOC: CHSIMG 12:56
PROVIDERS: PCP Nurse Practitioner Family; Visit Provider Nurse Practitioner Family
DX: M79.604 Pain in right leg (principal); M77.8 Other enthesopathies, not elsewhere classified
CPT/HCPCS: 73564

== ENCOUNTER 2025-02-27 14:09 | Outpatient (CLI) | payer OTHER, SELFPAY ==
--- NOTE | ~2025-02-27 | US_ITS ---
RIGHT LOWER EXTREMITY VENOUS ULTRASOUND Ordering provider: Kari Altamirano NP History: . M79.604 - Pain in right leg . Comparison: None. FINDINGS: --COMMON FEMORAL: Patent and free of thrombus. Normal compressibility, phasic flow and augmentation. --PROXIMAL SUPERFICIAL FEMORAL: Patent and free of thrombus. Normal compressibility, phasic flow and augmentation. --DISTAL SUPERFICIAL FEMORAL: Patent and free of thrombus. Normal compressibility, phasic flow and au gmentation. --POPLITEAL: Patent and free of thrombus. Normal compressibility, phasic flow and augmentation. --POSTERIOR TIBIAL: Patent and free of thrombus. Normal compressibility, phasic flow and augmentation . IMPRESSION: Negative right lower extremity venous US. No deep vein thrombosis. Reviewed, dictated and finalized at location A.
--- OUTSIDE RECORDS SUMMARY | 2025-02-27 14:12 | XMS_ITS | Clinical Summary ---
Author Organization [facility] [employer] Address [address] [place] [address] Care Team Providers Care Hopper Attendant Name Role Phone Unavailable Primary Care Provider Unavailabl e Source Comments [facility] [employer],non-owned Affiliates and Associated Physician Practices is amultiple site organization consisting of ambulatory clinics and hospital sitesin [place], [place], [place]. This disclosure is being madepursuant to the Care Everywhere program and may not contain all information available regarding this patient. Last updated 18.[employer] Allergies Active Allergy Reactions Criticality Noted [...] on file Legal Sex Female 12:12 PM ROOFER HELPER VINYL COATING Gender Identity Not on file Sexual Orientation Not on file Last Filed Vital Signs Vital Sign Reading Time Taken Comments Blood Pressure 146/88 10/26/2019 11:27 AM ROOFER HELPER VINYL COATING Pulse 103 10/26/2019 11:27 AM ROOFER HELPER VINYL COATING Temperature 36.9 C (98.4 F) 10/26/2019 11:27 AM ROOFER HELPER VINYL COATING Respiratory Rate 16 10/26/2019 11:27 AM ROOFER HELPER VINYL COATING Oxygen Saturation 97% 10/26/2019 11:27 AM ROOFER HELPER VINYL COATING Inhaled Oxygen Concentration - - Weight 111.1 kg (245 lb) 10/26/2019 11:27 AM ROOFER HELPER VINYL COATING Height 157.5 cm (5' 2 ) 10/26/2019 11:27 AM ROOFER HELPER VINYL COATING Body Mass Index 44.81 10/26/2019 11:27 AM ROOFER HELPER VINYL COATING Plan of Treatment Health Maintenance Due Date [...] patient's age to complete this topic Insurance [facility]
--- OUTSIDE RECORDS SUMMARY | 2025-02-27 14:12 | XMS_ITS | Clinical Summary ---
Author Organization [facility] Address [address], [address] [address] Phone Care Team Providers Care Preschool Assistant Principal Name Role Phone Brianda Alfaro MD Primary Care Provider [phone] Social History Tobacco Use Types Packs/Day Years Used Date Smoking Tobacco: Never Assessed Comments Unknown Sex and Gender Information Value Date Recorded Sex Assigned at Not on file Legal Sex Female 11:07 AM POSTAL MAIL CARRIER Gender Identity Not on file Sexual Orientation [...] Recently Relevant to Health Maintenance Insurance MEDICAID [place] Care Teams Preschool Assistant Principal Relationship Specialty Start Date End Date Brianda Alfaro MD [address] [place] [address] PCP - General Internal Medicine 11/13/18
--- OUTSIDE RECORDS SUMMARY | 2025-02-27 14:12 | XMS_ITS | Clinical Summary ---
Author Organization [facility] Address [address] [place] [address] Care Team Providers Care Piccolo Mechanic Name Role Phone Unavailable Primary Care Provider [...] STL ABSTRACTION Provider, Abstract 02/20/2025 Orders Only [facility] Oncology and Hematology - Richard [address] [place] [address] Tyron Melo MD 02/19/2025 3:45 PM CDT Office Visit [facility] Oncology and Hematology [facility] [address] [place] [address] Tyron Melo MD CLL (chronic lymphocytic leukemia) (CMS/[facility]) (Primary Dx) 01/07/2025 External Device Data STL [...] st Contact Info) Description 08/27/2025 10:15 AM DIRECTOR DIGITAL COMMUNICATIONS Office Visit [facility] Oncology and Hematology [facility] [address] [facility] [address] [place] [address] Tyron Melo MD [address] [facility] [address] [place] [address] Health Maintenance Due Date Last [...]
--- OUTSIDE RECORDS SUMMARY | 2025-02-27 14:12 | XMS_ITS | Encounter Summary ---
Author Organization [facility] Address [address] [place] [address] Care Team Providers Care Fixed Assets Accountant Name Role Phone Unavailable Primary Care Provider [...] st Contact Info) Description 08/27/2025 10:15 AM EDGE TRIMMER Office Visit [facility] Oncology and Hematology - Richard [address] [email or web address] [address] [place] [address] Tyron Melo MD [address] [facility] [address] [place] [address] documented as of this encounter Visit Diagnoses Not on filedocumented in this encounter
== END 2025-02-27 14:10 | disposition home or self-care (01) ==
PROVIDERS: PCP Nurse Practitioner Family; Visit Provider Nurse Practitioner Family
DX: M79.604 Pain in right leg (principal)
CPT/HCPCS: 93971

== ENCOUNTER 2025-05-29 07:19 | Outpatient (CLI) | payer OTHER, SELFPAY ==
[2025-05-29 07:34] LABS: Hematocrit 47.9 % (35.0-49.0); Hemoglobin 15.1 g/dL (12.0-15.0); Immature Granulocyte Percent A 0.4 % (0.0-0.0); Lymphocytes Absolute Auto 8.92 K/mm3 (1.10-4.50); Mean Corpuscular HGB Conc 31.5 g/dL (32-36); Mean Corpuscular Hemoglobin 29.5 pg (27.0-31.0); Mean Corpuscular Volume 93.6 fL (78.0-102.0); Nucleated Red Blood Cells Absolute Auto 0.00 K/mm3 (0.00-0.00); Nucleated Red Blood Cells Perc 0.0 % (0-0.0); Platelet Count Result 261 K/mm3 (150-420); Red Blood Count 5.12 M/mm3 (4.20-5.40); White Blood Count 15.0 K/mm3 (4.8-10.8)
[2025-05-29 08:14] LABS: Hemoglobin A1C 7.1 % (<5.7)
[2025-05-29 08:24] LABS: Alanine Aminotransferase 15 U/L (6-35); Albumin Level 4.1 g/dL (3.5-5.1); Alkaline Phosphatase 74 U/L (38-126); Anion Gap 6 mmol/L (4-12); Aspartate Amino Transferase 21 U/L (14-36); Bilirubin,Total 0.7 mg/dL (0.2-1.3); Blood Urea Nitrogen 18 mg/dL (7-17); Calcium 9.3 mg/dL (8.4-10.2); Carbon Dioxide 27 mmol/L (22-30); Chloride 105 mmol/L (98-107); Cholesterol 176 mg/dL (0-200); Estimated Glomerular Filt Rate > 60; Glucose 138 mg/dL (65-110); HDL Direct 49 mg/dL; Iron 71 ug/dL (37-170); Osmolality Calculated 289 mOsm/kg (285-295); Potassium 4.8 mmol/L (3.4-5.0); Sodium 138 mmol/L (137-145); Total Protein 6.4 g/dL (6.3-8.2); Triglycerides 274 mg/dL (<150)
[2025-05-29 08:57] LABS: Ferritin 79.60 ng/mL (11.1-264)
== END 2025-05-29 07:20 | disposition home or self-care (01) ==
LOC: CHSLAB 07:20
PROVIDERS: PCP Nurse Practitioner Family; Visit Provider Nurse Practitioner Family
DX: Z13.6 Encounter for screening for cardiovascular disorders (principal); E78.5 Hyperlipidemia, unspecified; I10 Essential (primary) hypertension; E61.1 Iron deficiency; D64.9 Anemia, unspecified; E11.9 Type 2 diabetes mellitus without complications; Z79.899 Other long term (current) drug therapy
CPT/HCPCS: 36415; 80053; 80061; 82306; 82728; 83036; 83540; 85025

== ENCOUNTER 2025-06-24 11:39 | Outpatient (CLI) | payer OTHER, SELFPAY ==
--- NOTE | ~2025-06-24 | MM_ITS ---
EXAMINATION: MM screening juan j BI w jaja HISTORY: Screening TECHNIQUE: Craniocaudal and mediolateral oblique 3-D tomosynthesis images were obtained and synthetic 2-D images were generated. CAD analysis was submitted and interpreted. COMPARISON: 05/17/2023 BREAST PARENCHYMAL COMPOSITION: Not Dense: The breasts are almost entirely fatty. FINDINGS: There is no evidence of suspicious mass, calcification, or architectural distortion to suggest malignancy. There has been no suspicious interval change. IMPRESSION: 1. No mammographic evidence of malignancy. Recommend routine screening mammography in one year. BI-RADS Category 2: Benign finding(s) Reviewed, dictated and finalized at location Q. IMPRESSION: 1. No mammographic evidence of malignancy. Recommend routine screening mammogra phy in one year. BI-RADS Category 2: Benign finding(s)
--- OUTSIDE RECORDS SUMMARY | 2025-06-24 13:39 | XMS_ITS | Clinical Summary ---
Author Organization [facility]ara Thom[facility] Address [address] [place] [address] Care Team Providers Care Furniture Repair Technician Name Role Phone Unavailable Primary Care Provider [...] by subcutaneous injection every 7 days. 03/18/20 Active Active Problems No known active problems Encounters Date Type Department Care Team Description 05/13/2025 External Device Data STL ABSTRACTION Provider, Abstract 04/01/2025 External Device Data STL ABSTRACTION Provider, Abstract [...] Date Smoking Tobacco: Some Days Cigarettes 1.8 45.4 Started: 01/23/2020 Tobacco Cessation:Ready to Q uit: [...] 3:24 PM CDT Height 157.5 cm (5' 2) 01/23/2024 10:3 8 AM CDT Body Mass Index 43.86 01/23/2024 10:38 AM CDT Plan of Treatment Upcoming Encounters Date Type Department Care Team (Late st Contact Info) Description 08/27/2025 10:15 AM CERTIFIED HYPERBARIC TECHNICIAN Office Visit [facility] Oncology and Hematology - Richard [address] [facility] [address] [place] [address] Tyron Melo MD [address] [facility] [address] [place] [address] Health Maintenance Due Date Last [...] years 1-dose series) 2023 INFLUENZA VACCINE (#1) 2025 BREAST CANCER SCREENING 06/11/2025 06/11/2024 COLORECTAL SCREENING [...]
--- OUTSIDE RECORDS SUMMARY | 2025-06-24 13:39 | XMS_ITS | Clinical Summary ---
Author Organization [facility] Address [address], [address] [address] Phone Care Team Providers Care Machine Shop Specialist Name Role Phone Brianda Alfaro MD Primary Care Provider [phone] Social History Tobacco Use Types Packs/Day Years Used Date Smoking Tobacco: Never Assessed Comments Unknown Sex and Gender Information Value Date Recorded Sex Assigned at Not on file Legal Sex Female 11:07 AM COLD ROLLING SUPERVISOR Gender Identity Not on file Sexual Orientation Not on file Plan of Treatment Health Maintenance Due Date Last Done Comments Hepatitis C Virus (HCV) Screening 1965 TdaP Immunization 1965 Pap Smear 1984 Cervical Cancer Screening (CCS) 1993 HPV/Cotest 1993 Cologuard 2008 Immunochemical Fecal Occult Blood 2008 Pneumococcal Immunization (5 0+ years) (1 of 1 - PCV) 2013 Zoster Immunization (1 of 2) 2013 Colonoscopy 11/08/2023 11/08/2018 Colorectal Cancer Screening 11/08/2023 SARS-COV-2 Immunization ( - 2023- season) 2024 Influenza Immunization (#1) 2025 Respiratory Syncytial Virus (RSV) Immunization (Adult) (1 - 1-dose 75+ series) 2038 Hepatitis B Immunization Aged Out No longer eligible based on patient's age to complete this topic Human Papillomavirus (HPV) Immunization Aged Out No longer eligible b ased [...] Health Maintenance Results * COLONOSCOPY (11/08/2018) Reynaldo Galeaskhadijahmary DO PROCEDURE/MINOR SURGICAL ORDERA BLES Final Result from Last 3 Months or Most Recently Relevant to Health Maintenance Insurance MED[place]ID [place] Care Teams Machine Shop Specialist Relationship Specialty Start Date End Date Brianda Alfaro MD [address] [place] [address] PCP - General Internal Medicine 11/13/18
--- OUTSIDE RECORDS SUMMARY | 2025-06-24 13:39 | XMS_ITS | Clinical Summary ---
Author Organization [facility] [employer] Address [address] [place] [address] Care Team Providers Care Finance Professor Name Role Phone Unavailable Primary Care Provider Unavailabl e Source Comments [facility] [employer],non-owned Affiliates and Associated Physician Practices is amultiple site organization consisting of ambulatory clinics and hospital sitesin [place], [place], [place] and [place]. This disclosure is being madepursuant to the Care Everywhere program and may not contain all information available regarding this patient. Last updated 18.[employer] Allergies Active Allergy Reactions Criticality Noted Date [...] on file Legal Sex Female 12:12 PM ABE TEACHER Gender Identity Not on file Sexual Orientation Not on file Last Filed Vital Signs Vital Sign Reading Time Taken Comments Blood Pressure 146/88 10/26/2019 11:27 AM ABE TEACHER Pulse 103 10/26/2019 11:27 AM ABE TEACHER Temperature 36.9 C (98.4 F) 10/26/2019 11:27 AM ABE TEACHER Respiratory Rate 16 10/26/2019 11:27 AM ABE TEACHER Oxygen Saturation 97% 10/26/2019 11:27 AM ABE TEACHER Inhaled Oxygen Concentration - - Weight 111.1 kg (245 lb) 10/26/2019 11:27 AM ABE TEACHER Height 157.5 cm (5' 2) 10/26/2019 11:27 AM ABE TEACHER Body Mass Index 44.81 10/26/2019 11:27 AM ABE TEACHER Plan of Treatment Health Maintenance Due Date [...] of 2) 2013 SCREENING FOR DIABETES 10/26/2019 DEPRESSION SCREENING 10/09/2024 COVID-19 VACCINE (1 - 2023-2 5 season) 2025 INFLUENZA VACCINE (#1) 2025 Respiratory Syncytial Virus (RSV) Vaccine Pt: [...] patient's age to complete this topic Insurance [facility]
--- OUTSIDE RECORDS SUMMARY | 2025-06-24 13:39 | XMS_ITS | Clinical Summary ---
Author Organization [facility] Address [facility] [place] [address] Care Team Providers Care Tray Checker Name Role Phone Unavailable Primary Care Provider Unavailabl e Social History Tobacco Use Types Packs/Day Years Used Date Smoking Tobacco: Never Assessed Comments Unknown Sex and Gender Information Value Date Recorded Sex Assigned at Not on file Legal Sex Female 5:59 PM BARREL REPAIRER Gender Identity Not on file Sexual Orientation [...] 2) 2013 COVID-19 Vaccine (2023-2 5 season) 2025 RSV Immunization or 60+ Years (1 - [...]
== END 2025-06-24 11:40 | disposition home or self-care (01) ==
PROVIDERS: PCP Nurse Practitioner Family; Visit Provider Nurse Practitioner Family
DX: Z12.31 Encounter for screening mammogram for malignant neoplasm of breast (principal)
CPT/HCPCS: 77063; 77067

== ENCOUNTER 2025-08-29 07:33 | Outpatient (CLI) | payer OTHER, SELFPAY ==
--- NOTE | 2025-08-29 | CONSULT_PTH ---
PATIENT: Ignacia Feliciano LOC: [facility]#:[id number] AGE/SX: 59/F ROOM: RE08/29/[address]: Kari Altamirano NP : 1965 BED: DIS: 08/29/2025 SPEC #: [id number] RECD: 08/29/25 10:52 STATUS: JIGAR REQ #: [id number] SONYA: 08/29/25 00:[address]: Kari Altamirano DEPT: [facility] Consult RECD BY: Lu Suarez [place],([facility] Tissues: A - Peripheral Smear Procedures: Hematology Consult
--- OUTSIDE RECORDS SUMMARY | 2025-08-29 07:37 | XMS_ITS | Clinical Summary ---
Author Organization [facility] Address [address], [address] [address] Phone Care Team Providers Care Electrician Aircraft Name Role Phone Brianda Alfaro MD Primary Care Provider [phone] Social History Tobacco Use Types Packs/Day Years Used Date Smoking Tobacco: Never Assessed Comments Unknown Sex and Gender Information Value Date Recorded Sex Assigned at Not on file Legal Sex Female 11:07 AM HEALTH TECH Gender Identity Not on file Sexual Orientation [...] Colorectal Cancer Screening 11/08/2023 Influenza Immunization (#1) 2025 SARS-COV-2 Immunization ( - season) 2025 Respiratory Syncytial Virus (RSV) Immunization (Adult) [...] Health Maintenance Results * COLONOSCOPY (11/08/2018) Reynaldo Kev Adalkhadijahmary DO PROCEDURE/MINOR SURGICAL ORDERA BLES Final Result from Last 3 Months or Most Recently Relevant to Health Maintenance Insurance [place]ID [place] Care Teams Electrician Aircraft Relationship Specialty Start Date End Date Brianda Alfaro MD [address] [place] [address] PCP - General Internal Medicine 11/13/18
--- OUTSIDE RECORDS SUMMARY | 2025-08-29 07:37 | XMS_ITS | Clinical Summary ---
Author Organization [facility] Address [address] [place] [address] Care Team Providers Care Carpentry Instructor Name Role Phone Unavailable Primary Care Provider Unavailabl e Source Comments [facility],non-owned Affiliates and Associated Physician Practices is amultiple site organization consisting of ambulatory clinics and hospital sitesin [place], [place], [place] and [place]. This disclosure is being madepursuant to the Care Everywhere program and may not contain all information available regarding this patient. Last updated 18.[employer] [facility] Allergies Active Allergy Reactions Criticality Noted Date [...] on file Legal Sex Female 12:12 PM COAL TRIMMER MACHINE OPERATOR Gender Identity Not on file Sexual Orientation Not on file Last Filed Vital Signs Vital Sign Reading Time Taken Comments Blood Pressure 146/88 10/26/2019 11:27 AM COAL TRIMMER MACHINE OPERATOR Pulse 103 10/26/2019 11:27 AM COAL TRIMMER MACHINE OPERATOR Temperature 36.9 C (98.4 F) 10/26/2019 11:27 AM COAL TRIMMER MACHINE OPERATOR Respiratory Rate 16 10/26/2019 11:27 AM COAL TRIMMER MACHINE OPERATOR Oxygen Saturation 97% 10/26/2019 11:27 AM COAL TRIMMER MACHINE OPERATOR Inhaled Oxygen Concentration - - Weight 111.1 kg (245 lb) 10/26/2019 11:27 AM COAL TRIMMER MACHINE OPERATOR Height 157.5 cm (5' 2) 10/26/2019 11:27 AM COAL TRIMMER MACHINE OPERATOR Body Mass Index 44.81 10/26/2019 11:27 AM COAL TRIMMER MACHINE OPERATOR Plan of Treatment Health Maintenance Due Date [...] 11/12/1981 DTAP/TDAP/TD VACCINES (1 - Tdap) 1982 PAP SMEAR 1984 Cervical Cancer Screening 1993 PAP with HPV 1993 PNEUMOCOCCAL VACCINE 50+ (1 of 1 - PCV) 2013 ZOSTER VACCINE (1 of 2) 2013 SCREENING FOR DIABETES 10/26/2019 DEPRESSION SCREENING 10/09/2024 COVID-19 VACCINE ( - 2024-2 6 season) 2025 INFLUENZA VACCINE (#1) 2025 Respiratory [...]
--- OUTSIDE RECORDS SUMMARY | 2025-08-29 07:37 | XMS_ITS | Clinical Summary ---
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 Role Phone Unavailable Primary Care Provider [...] Encounters Date Type Department Care Team Description 08/26/2025 External Device Data [facility] ABSTRACTION Provider, Abstract 08/06/2025 External Device Data [facility] ABSTRACTION Provider, Abstract 08/05/2025 External Device Data [facility] ABSTRACTION Provider, Abstract [...] Date Smoking Tobacco: Some Days Cigarettes 1.8 45.6 Started: 01/23/2020 Tobacco Cessation:Ready to Q uit: [...] Care Team (Late st Contact Info) Description 09/02/2025 9:15 AM 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
--- OUTSIDE RECORDS SUMMARY | 2025-08-29 07:37 | XMS_ITS | Clinical Summary ---
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 Gender Identity Not on file Sexual Orientation [...] Vaccines (1 of 2) 2013 COVID-19 Vaccine (2024-2 6 season) 2025 Influenza Adult (#1) 2025 RSV Immunization or 60+ Years (1 - 1-dose 75+ series) 2038 Hepatitis A Vaccines Aged Out No long er eligible based on patient's age to complete this topic Meningococcal B Vaccine Aged Out No l onger eligible based on patient's age to complete this topic Meningococcal Vaccine Aged Out No shruthi janie eligible based on patient's age to complete this topic RSV Immunizations Under 20 Months Aged Out No longer eligible based on patient's age to complete this topic
[2025-08-29 07:50] LABS: Hematocrit 50.8 % (35.0-49.0); Hemoglobin 15.8 g/dL (12.0-15.0); Mean Corpuscular HGB Conc 31.1 g/dL (32-36); Mean Corpuscular Hemoglobin 29.1 pg (27.0-31.0); Mean Corpuscular Volume 93.6 fL (78.0-102.0); Platelet Count Result 252 K/mm3 (150-420); Red Blood Count 5.43 M/mm3 (4.20-5.40); White Blood Count 14.3 K/mm3 (4.8-10.8)
[2025-08-29 08:02] LABS: Hemoglobin A1C 6.7 % (<5.7)
[2025-08-29 08:12] LABS: Band Neutrophils Percent 0 % (0-6); Basophils Absolute Manual 0.00 K/mm3 (0-0.1); Basophils Percent Manual 0 % (0-1); Eosinophils Absolute Manual 0.14 K/mm3 (0.02-0.50); Eosinophils Percent Manual 1 % (1-6); Lymphocytes Absolute Manual 8.43 K/mm3 (1.1-4.5); Lymphocytes Percent Manual 59 % (18-44); Monocytes Absolute Manual 0.42 K/mm3 (0.1-0.90); Monocytes Percent Manual 3 % (3-9); Neutrophils Absolute Manual 5.29 K/mm3 (1.3-6.7); Neutrophils Percent Manual 37 % (46-73); Total Cells Counted 100
[2025-08-29 08:13] LABS: Alanine Aminotransferase 23 U/L (6-35); Albumin Level 4.2 g/dL (3.5-5.1); Alkaline Phosphatase 75 U/L (38-126); Anion Gap 8 mmol/L (4-12); Aspartate Amino Transferase 27 U/L (14-36); Bilirubin,Total 0.7 mg/dL (0.2-1.3); Blood Urea Nitrogen 14 mg/dL (7-17); Calcium 9.3 mg/dL (8.4-10.2); Carbon Dioxide 29 mmol/L (22-30); Chloride 105 mmol/L (98-107); Estimated Glomerular Filt Rate > 60; Glucose 132 mg/dL (65-110); Osmolality Calculated 296 mOsm/kg (285-295); Potassium 4.4 mmol/L (3.4-5.0); Sodium 142 mmol/L (137-145); Total Protein 6.5 g/dL (6.3-8.2)
== END 2025-08-29 07:34 | disposition home or self-care (01) ==
LOC: CHSLAB 07:35
PROVIDERS: PCP Nurse Practitioner Family; Visit Provider Nurse Practitioner Family
DX: E11.9 Type 2 diabetes mellitus without complications (principal); I10 Essential (primary) hypertension; C91.10 Chronic lymphocytic leukemia of B-cell type not having achieved remission
CPT/HCPCS: 36415; 80053; 83036; 85025